=== PATIENT | female | born 1940 | race Two or more races ===

== ENCOUNTER 2019-01-26 17:34 | Inpatient (IN) | payer MEDICAID, MEDICARE, OTHER ==
[~2019-01-26] VITALS: Ht 160 cm; Wt 60.8 kg
[2019-01-26 18:45] LABS: Basophils # (auto) 0.1 uL; Basophils % (auto) 0.9 % (0.0-2.0); Eosinophils # (auto) 0.3 uL; Hematocrit 36.7 % (36.0-46.0); Hemoglobin 12.6 g/dL (12.2-16.2); Lymphocytes # (auto) 1.5 uL; Lymphocytes % (auto) 10.6 % (10.0-50.0); Mean Corpuscular Hgb Conc. 34.2 g/dL (32.0-36.0); Mean Corpuscular Volume 87.6 fL (80.0-100.0); Monocytes # (auto) 0.8 uL; Monocytes % (auto) 5.4 % (0.0-12.0); Neutrophils # (auto) 11.4 uL; Neutrophils % (auto) 81.1 % (37.0-80.0); Platelet Count (auto) 379 10^3/uL (140-450); Red Blood Cells 4.19 10^6/uL (4.0-5.20); Red Cell Distribution Width 13.4 % (11.8-14.3); White Blood Cell 14.1 10^3/uL (4.4-10.8)
[2019-01-26 18:58] LABS: Albumin 3.3 g/dL (3.4-5.0); Anion Gap 6 (5-15); Blood Urea Nitrogen 15 mg/dL (7-18); Calcium 9.6 mg/dL (8.5-10.1); Carbon Dioxide 28 mmol/L (21-32); Chloride 112 mmol/L (98-107); Glucose 129 mg/dL (74-106); Potassium 3.3 mmol/L (3.5-5.1); Sodium 146 mmol/L (136-145)
[2019-01-26 19:00] LABS: INR 1.06 (0.9-1.15); Partial Thromboplastin Time 25.1 sec (23.64-32.05)
[2019-01-26 19:03] LABS: Alanine Aminotransferase 28 U/L (13-56); Alkaline Phosphatase 80 U/L (45-117); Aspartate Aminotransferase 20 U/L (15-37); BUN/Creatinine Ratio 23.1; Bilirubin, Total 1.1 mg/dL (0.2-1.0); GFR African American 114 mL/min; GFR Non-African American 94 mL/min; Total Protein 7.9 g/dL (6.4-8.2)
[2019-01-26] MEDS ORDERED: ONDANSETRON HCL 4 MG/2 ML VIAL IV PRN (21:30)
[2019-01-26] MEDS ORDERED: cefTRIAXone 1GM/50ML D5W 50 ML IV ONE (21:30)
[2019-01-26] MEDS ORDERED: DOCUSATE SOD 100 MG CAP PO PRN (21:30)
[2019-01-26] MEDS ORDERED: FUROSEMIDE 40 MG/4 ML VIAL IV ONE (21:30)
[2019-01-26] MEDS: traZODone HCL 50 MG TAB PO SCH (22:00)
[2019-01-26] MEDS ORDERED: AZITHROMYCIN 500MG/ 250ML 250 ML IV ONE (22:30)
[2019-01-27 05:56] LABS: Basophils # (auto) 0.1 uL; Basophils % (auto) 0.7 % (0.0-2.0); Eosinophils # (auto) 0.2 uL; Eosinophils % (auto) 1.5 % (0.0-7.0); Hematocrit 36.1 % (36.0-46.0); Hemoglobin 12.3 g/dL (12.2-16.2); Lymphocytes # (auto) 2.3 uL; Lymphocytes % (auto) 15.6 % (10.0-50.0); Mean Corpuscular Hemoglobin 29.8 pg (28.0-32.0); Mean Corpuscular Volume 87.7 fL (80.0-100.0); Monocytes # (auto) 1.1 uL; Monocytes % (auto) 7.5 % (0.0-12.0); Neutrophils % (auto) 74.7 % (37.0-80.0); Platelet Count (auto) 331 10^3/uL (140-450); Red Blood Cells 4.12 10^6/uL (4.0-5.20); Red Cell Distribution Width 13.2 % (11.8-14.3); White Blood Cell 14.8 10^3/uL (4.4-10.8)
[2019-01-27 06:19] LABS: BUN/Creatinine Ratio 19.7; Potassium 3.2 mmol/L (3.5-5.1)
[2019-01-27] MEDS ORDERED: POTASSIUM CHL 20 Meq TABLET PO ONE ×2 (07:00→17:45)
[2019-01-27] MEDS ORDERED: cefTRIAXone 1GM/50ML D5W 50 ML IV SCH (09:00)
[2019-01-27] MEDS: PANTOPRAZOLE 40 MG TAB PO SCH (10:46)
[2019-01-27] MEDS: amLODIPine BESYLATE 5 MG TAB PO SCH (10:46)
[2019-01-27] MEDS ORDERED: IOHEXOL 300 MG/ML 100ML BOTTLE IJ ONE (12:28)
--- NOTE | 2019-01-27 17:00 | NUR ---
Telemetry admit from ER JANANAI admitted to Telemetry unit after SBAR received. Patient oriented to Hany Dozier, primary RN, unit, room, bed, and unit policies regarding patient care and visiting hours. Patient now on continuous telemetry monitoring, tele box # 6 and telemetry reading on arrival to unit is Sinus Rhythm. Patient placed on bedside oxygen @ 4L/min, weighed by bedscale and encouraged to call if they need something. All questions and concerns addressed, patient verbalized understanding.
[2019-01-27] MEDS ORDERED: LEVOFLOXACIN 500 MG TAB PO ONE (17:45)
[2019-01-27] MEDS ORDERED: POTASSIUM CHL 20MEQ/100ML 100 ML IV ONE (17:45)
[2019-01-27 18:34] VITALS: BP 127/63
--- NOTE | 2019-01-27 20:50 | NUR ---
PER MORNING SHIFT RN, POTASSIUM PO AND 20MEQ IV X1 AND LEVAQUIN WERE GIVEN, PULLED OUT FROM PSYCHIATRIC AT 1921.
[2019-01-27] MEDS ORDERED: AZITHROMYCIN 500MG/ 250ML 250 ML IV SCH (21:00)
[2019-01-27] MEDS: traZODone HCL 50 MG TAB PO SCH (21:44)
[2019-01-27 22:00] VITALS: BP 133/69
--- NOTE | 2019-01-27 22:09 | NUR ---
Respiratory note: PT SEEN FOR SCHEDULED MED NEB TX AT 2209. TX NOT INDICATED AT THIS TIME. PT IS DISPLAYING NO SIGNS OF DISTRESS. BREATH SOUNDS WERE CLEAR AND DIMINISHED BILATERALLY. HR 93 RR 16 POX 92% ON A 2L NASAL CANNULA.
[2019-01-28] VITALS (7 sets, daily range): BP systolic 95–143; BP diastolic 50–78
--- NOTE | 2019-01-28 06:07 | NUR ---
URINE SPECIMEN SENT TO LAB.
[2019-01-28 06:44] LABS: BUN/Creatinine Ratio 37.5; Calcium 9.2 mg/dL (8.5-10.1); Potassium 4.1 mmol/L (3.5-5.1)
[2019-01-28 07:09] LABS: Basophils # (auto) 0.1 uL; Basophils % (auto) 0.9 % (0.0-2.0); Eosinophils # (auto) 0.4 uL; Eosinophils % (auto) 3.2 % (0.0-7.0); Hematocrit 36.6 % (36.0-46.0); Hemoglobin 12.3 g/dL (12.2-16.2); Lymphocytes # (auto) 2.2 uL; Mean Corpuscular Hemoglobin 29.6 pg (28.0-32.0); Mean Corpuscular Hgb Conc. 33.7 g/dL (32.0-36.0); Neutrophils # (auto) 8.7 uL; Neutrophils % (auto) 69.9 % (37.0-80.0); Platelet Count (auto) 298 10^3/uL (140-450); Red Blood Cells 4.16 10^6/uL (4.0-5.20); Red Cell Distribution Width 13.3 % (11.8-14.3); White Blood Cell 12.4 10^3/uL (4.4-10.8)
--- NOTE | 2019-01-28 07:15 | NUR ---
Opening Shift Note Assumed care of patient, awake and alert. No S/S of distress/SOB or pain. Instructed on POC and to call for assist PRN, will continue to monitor for changes Q1hr and PRN. Bed locked in lowest position with two side rails up and call light in reach.
[2019-01-28] MEDS: PANTOPRAZOLE 40 MG TAB PO SCH (09:57)
[2019-01-28] MEDS: amLODIPine BESYLATE 5 MG TAB PO SCH (09:57)
[2019-01-28] MEDS: LEVOFLOXACIN 500 MG TAB PO SCH (09:57)
[2019-01-28 10:02] LABS: Urine Bacteria NONE SEEN /hpf (None Seen); Urine Blood Negative /uL (Negative); Urine Mucus FEW (None Seen); Urine Specific Gravity 1.042 (1.001-1.035); Urine WBC 6 /hpf (0 - 5)
--- NOTE | 2019-01-28 10:05 | NUR ---
Respiratory note: ROUTINE PRN TX ASSESSMENT DONE. HR 63, RR 16, POX 93% ON RA, BREATH SOUNDS ARE CLEAR. NO SOB OR DISTRESS NOTED. PT WAS NOTIFY TO HAVE RT PAGE FOR MN TX IF NEEDED.
--- NOTE | 2019-01-28 10:08 | NUR ---
SPOKE TO DR Ana JAMIL AND NOTIFIED HIM THAT RADIOLOGY CALLED AND SAID THE THE ADRENAL BIOPSY CANNOT BE PERFORMED "IT IS TO HIGH" . DR JAMIL AWARE AND SAID TO CONTACT DR GRACIA TO FIND OUT IF PATIENT IS CLEARED TO GO HOME AND FOLLOW UP OUT PATIENT OR IF THERE ANYTHING ELSE THAT NEEDS TO BE DONE.
--- NOTE | 2019-01-28 10:39 | NUR ---
SPOKE TO DR Soni GRACIA AT [facility] AND NOTIFIED HIM THAT Ana JAMIL WANTS TO [id number] IF THIS PATIENT IS CLEARED TO GO HOME OR IS THERE ANYTHING ELSE NEEDING TO BE ORDERS. PER DR GRACIA PATIENT CAN GO HOME AND FOLLOW UP WITH HIM IN [address] Ana JAMIL KNOW.
--- NOTE | 2019-01-28 12:59 | NUR ---
ORDERS FRO REGULAR DIET RECEIVED FROM DR Ana JAMIL
[2019-01-28] MEDS ORDERED: ENOXAPARIN SOD 40 MG/0.4 ML SYRINGE SC ONE (20:15)
[2019-01-28] MEDS ORDERED: IOHEXOL 350 MG/ML 100ML IJ ONE (20:17)
[2019-01-28] MEDS ORDERED: AML5T PO (20:17)
[2019-01-28] MEDS ORDERED: ENOXAPARIN SOD 60 MG/0.6 ML SYRINGE SC ONE (20:30)
[2019-01-28] MEDS: traZODone HCL 50 MG TAB PO SCH (21:09)
--- NOTE | 2019-01-28 21:15 | NUR ---
EKG DONE, ST WITH PACS. PATIENT CAME BACK FROM CT, PATIENT HAD EPISODES OF TACHYCARDIA TO 160'S WHILE IN CT, NON SUSTAINED, MD JAMIL MADE AWARE.
[2019-01-28] MEDS: SODIUM CHLORIDE 0.9% 1,000 ML IV SCH (21:45)
--- NOTE | 2019-01-28 21:50 | NUR ---
Respiratory note: ABG DONE ON ROOM AIR PER DR'S ORDER. LEFT A MESSAGE FOR DR. Nydia JAMIL. RN ALSO AWARE OF THE ABG RESULTS. PT PLACED BACK ON 2L NC, NO RESPIRATORY DISTRESS NOTED AT THIS TIME, PT FAMILY AT BEDSIDE. WILL CONTINUE TO MONITOR.
--- NOTE | 2019-01-28 22:25 | NUR ---
SPOKE WITH DR. COUGHLIN AND INFORMED HIM OF ABG RESULTS AND CTA RESULTS. ORDERED TO GIVE LOVENOX X1 ORDERED. HOLD MORNING DOSE OF LOVENOX AND MAY RESUME AFTER THORACENTESIS. KEEP O2SAT >94%, ORDERED TO PLACE IR CONSULT FOR THORACENTESIS IN THE MORNING, 01/29/19. IF POSSIBLE TO BE DONE EARLY IN THE MORNING POSSIBLE. PATIENT AND FAMILY INFORMED OF PLAN OF CARE.
--- NOTE | 2019-01-28 22:40 | NUR ---
DR JAMIL CALLED AND WANTED TO MOVE PATIENT TO STEP DOWN, MADE DIRECTOR OF DEVELOPMENT AND MARKETING AWARE. WAITING FOR AVAILABLE ROOM.
--- NOTE | 2019-01-28 23:00 | NUR ---
Respiratory note: PT ASSESSED FOR PRN MED NEB TX. HR 109, RR 18, SPO2 94% ON 8L OXYMIZER, BS DIMINISHED. PT STATED SHE DID NOT WANT A BREATHING TX. ADVISED PT TO CALL IF TX IS NEEDED.
--- NOTE | 2019-01-28 23:23 | NUR ---
VERBAL ORDER FROM DR. Nydia JAMIL TO GIVE NS IV TO RUN AT 75ML/HR X 2LITERS.
--- NOTE | 2019-01-28 23:24 | NUR ---
NOTIFIED RT REGARDING PATIENT REQUIRING MORE OXYGEN, CURRENTLY ON 5L/NC AND O2SAT IS STAYING AT 93%. PER MD JAMIL, TO KEEP O2SAT >94%. WILL PLACE PT ON OXYMIZER.
--- NOTE | 2019-01-28 23:34 | NUR ---
PAGED DR. JAMIL AND LEFT A MESSAGE THAT THERE IS NO AVAILABLE ROOM IN [facility] AT THIS TIME. WAITING FOR CALL BACK.
--- NOTE | 2019-01-29 00:13 | NUR ---
SPOKE WITH DR. JAMIL, IF THERE IS NO AVAILABLE [facility] BED TO MOVE PATIENT TO ICU. NOTIFIED RESOURCE ENGINEER, STILL WAITING FOR [facility] BED TO BE AVAILABLE SOMETIME TONIGHT. PATIENT'S DAUGHTER, RUPINDER NOTIFIED OF PATIENT MOVING TO [facility].
--- NOTE | 2019-01-29 01:21 | NUR ---
REPORT GIVEN TO WAYLON NUNEZ. PATIENT IS TRANSFERRING TO [facility] VIA BED WITH O2.
[2019-01-29 01:40] VITALS: BP 135/72
--- NOTE | 2019-01-29 01:40 | NUR ---
Received Pt from [facility] , assumed care of Pt, awake and alert, answered appropriately. Breathing on Oxymizer 8LPM, tachypneic and labored, lungs sound CTA except RML, RLL diminished, and LLL slightly diminished. 20G IV at right FA infusing NS at 75ml/hr, CDI site. Due to void. Bed in low position, call light within reach, all alarms are audible, fall and safety precaution in place. Instruct on POC and will continue to monitor q1 hr and prn.
--- NOTE | 2019-01-29 01:45 | NUR ---
PATIENT TRANSFERRED TO ROOM 263, NOTIFIED RUPINDER (PATIENT'S DAUGHTER) OF PATIENT ROOM NO.
[2019-01-29 04:00] VITALS: BP 131/66
--- NOTE | 2019-01-29 05:00 | NUR ---
Patient bathe/linen change/ Elimination Pt used bedpan and voided dark ton urine 120ml. Patient given partial bath and yeison care. Skin integrity assessed for any changes, no new changes. Linens changed. Patient repositioned for comfort. Tolerated fairly, SOB with exertion, unable to lie flat. Continue care.
[2019-01-29 05:57] LABS: Basophils # (auto) 0.1 uL; Basophils % (auto) 0.7 % (0.0-2.0); Eosinophils # (auto) 0.4 uL; Eosinophils % (auto) 2.9 % (0.0-7.0); Hematocrit 35.9 % (36.0-46.0); Hemoglobin 12.1 g/dL (12.2-16.2); Lymphocytes # (auto) 1.7 uL; Lymphocytes % (auto) 13.1 % (10.0-50.0); Mean Corpuscular Hemoglobin 29.9 pg (28.0-32.0); Mean Corpuscular Hgb Conc. 33.7 g/dL (32.0-36.0); Mean Corpuscular Volume 88.7 fL (80.0-100.0); Monocytes # (auto) 0.9 uL; Monocytes % (auto) 7.3 % (0.0-12.0); Neutrophils # (auto) 9.6 uL; Platelet Count (auto) 263 10^3/uL (140-450); Red Blood Cells 4.05 10^6/uL (4.0-5.20); Red Cell Distribution Width 13.2 % (11.8-14.3); White Blood Cell 12.6 10^3/uL (4.4-10.8)
[2019-01-29 06:04] LABS: Potassium 3.7 mmol/L (3.5-5.1)
[2019-01-29 06:22] LABS: BUN/Creatinine Ratio 20.3
[2019-01-29] MEDS: ALBUTEROL SULF 2.5 MG/0.5ML(0.5%) NEB SOLN NEB PRN (06:58)
--- NOTE | 2019-01-29 08:00 | NUR ---
Opening Shift Note Assumed care of patient, awake and alert. Patient Sinhala speaking. Patient on the monitor, VS WNL. Patient A&Ox4. Patient on Oxymizer at 8L saturation at 95%. IV 20G right forearm running NS at 75ml/hr. No S/S of distress/SOB or pain. Instructed on POC and to call for assist PRN. Bed locked and in the lowest position, side rails up x2, call light with in reach. Will continue to monitor.
[2019-01-29] MEDS: PANTOPRAZOLE 40 MG TAB PO SCH (09:53)
[2019-01-29] MEDS: amLODIPine BESYLATE 5 MG TAB PO SCH (09:54)
[2019-01-29] MEDS: LEVOFLOXACIN 500 MG TAB PO SCH (09:54)
[2019-01-29] MEDS: ENOXAPARIN SOD 60 MG/0.6 ML SYRINGE SC SCH ×2 (09:54→22:00)
[2019-01-29] MEDS ORDERED: ENOXAPARIN SOD 40 MG/0.4 ML SYRINGE SC SCH (10:00)
--- NOTE | 2019-01-29 10:00 | NUR ---
Medication dosages, usages, and side effects explained to patient and family. Patient and family verbalized understanding. Will continue to monitor.
[2019-01-29] MEDS: SODIUM CHLORIDE 0.9% 1,000 ML IV SCH ×2 (10:08→22:49)
--- NOTE | 2019-01-29 10:15 | NUR ---
Consents signed and in the chart for Right lung Thoracentesis. Radiologist and US tech at bedside for procedure. 1,400ml fluid out. No S/S of pain/SOB or distress noted during or after procedure. Dressing placed over procedure site right mid back. Dressing clean, dry, and intact, no signs of bleeding noted. Patient back in bed and resting at this time. Will continue to monitor.
--- NOTE | 2019-01-29 11:39 | NUR ---
Nutrition Assessment Notes please see attached link for complete assessment Est. Needs BW [id number] kcal (25-30 kcal/kgBW), 62-74 gms pro (1.0-1.2 gms/kgBW). Will continue to monitor pertinent labs and reassess nutrient need prn Addendum: 01/29/19 at [address] Amended: Links added.
[2019-01-29 12:00] VITALS: BP 112/59
--- NOTE | 2019-01-29 12:45 | NUR ---
Patient sitting up in bed eating lunch independently. Will continue to monitor.
--- NOTE | 2019-01-29 14:00 | NUR ---
Family at bedside. Patient resting. No S/S of pain/SOB or distress noted. Will continue to monitor.
--- NOTE | 2019-01-29 14:30 | NUR ---
Dr. Velasquez at bedside. Patient heart rate has increase between 120-130. Dr. Velasquez aware. Will page Dr. Cooper.
--- NOTE | 2019-01-29 15:30 | NUR ---
Dr. Cooper at bedside.
[2019-01-29 15:56] VITALS: BP 114/71
--- NOTE | 2019-01-29 16:00 | NUR ---
Patient had 1 small BM in bed aldana, form and brown in color. Will continue to monitor.
--- NOTE | 2019-01-29 16:07 | NUR ---
assessment Patient has no post discharge needs at this time. Addendum: 01/29/19 at 1608 by Mary Beth MAYFIELD Amended: Links added.
--- NOTE | 2019-01-29 17:00 | NUR ---
Patient resting. No S/S of pain/SOB or distress noted. Will continue to monitor.
--- NOTE | 2019-01-29 18:16 | NUR ---
Respiratory note: PT ASSESSED FOR PRN MED NEB TX. PT RESTING IN BED AT THIS TIME. NO RESPIRATORY DISTRESS NOTED. FAMILY AT BEDSIDE. HR 123, SPO2 95% ON 8L OXYMIZER, RR 26, BS CLEAR/DIMINISHED. PT AWARE TO HAVE RN PAGE RT IF MED NEB TX IS NEEDED, WILL CONTINUE TO MONITOR.
--- NOTE | 2019-01-29 18:30 | NUR ---
End of shift note: Patient sitting up in bed eating dinner. Patient Divehi speaking. Patient on the monitor, VS WNL. Patient A&Ox4. Patient on Oxymizer at 8L saturation at 96%. IV 20G right forearm running NS at 75ml/hr. No S/S of distress/SOB or pain. Bed locked and in the lowest position, side rails up x2, call light with in reach. Report to be given to date night sitter RN. Will continue to monitor.
--- NOTE | 2019-01-29 19:30 | NUR ---
Opening Shift Note Assumed care of patient, awake and alert. Breathing on Oxymizer 8 LPM, tachypneic, No S/S of distress. Denied pain. 20G IV at right FA infusing NS at 75 ml/hr, CDI site, due to d/s tomorrow. Due to void. Bed in low position, call light within reach, all alarms are audible, fall and safety precaution in place. Instructed on POC and to call for assist PRN, will continue to monitor for changes Q1hr and PRN.
[2019-01-29 20:00] VITALS: BP 118/72
[2019-01-29] MEDS: traZODone HCL 50 MG TAB PO SCH (21:47)
--- NOTE | 2019-01-29 23:50 | NUR ---
Condition update/ supplement V/S and condition stable, no fever, tachypneic, O2sat 95%. Asked to have some milk, provided with a carton of whole milk and prepared to NPO for the procedure tomorrow. Pt refused SCD, C/O unable to sleep due to SCD, explained reason/ benefit and risk, Pt aware but insisted to take off SCD. Continue care.
[2019-01-30] VITALS (9 sets, daily range): BP systolic 116–138; BP diastolic 62–80
--- NOTE | 2019-01-30 06:00 | NUR ---
Elimination/ Patient bathe/linen change Pt asked for a bed aldana and passed a moderate soft brown stool mixed with urine. Patient given complete bed bath. Skin integrity assessed for any changes, no new changes, thoracentesis wound CDI covered with Tegaderm. Linens changed. Patient repositioned for comfort. Breathing tolerated better than yesterday. Continue care.
[2019-01-30 06:35] LABS: Basophils # (auto) 0.1 uL; Basophils % (auto) 0.8 % (0.0-2.0); Eosinophils # (auto) 0.6 uL; Eosinophils % (auto) 5.2 % (0.0-7.0); Hematocrit 33.8 % (36.0-46.0); Hemoglobin 11.6 g/dL (12.2-16.2); Lymphocytes # (auto) 1.6 uL; Lymphocytes % (auto) 13.4 % (10.0-50.0); Mean Corpuscular Hemoglobin 30.4 pg (28.0-32.0); Mean Corpuscular Hgb Conc. 34.2 g/dL (32.0-36.0); Mean Corpuscular Volume 88.8 fL (80.0-100.0); Monocytes # (auto) 0.8 uL; Neutrophils # (auto) 8.7 uL; Neutrophils % (auto) 73.6 % (37.0-80.0); Platelet Count (auto) 240 10^3/uL (140-450); Red Blood Cells 3.81 10^6/uL (4.0-5.20); White Blood Cell 11.8 10^3/uL (4.4-10.8)
[2019-01-30 06:37] LABS: Calcium 8.5 mg/dL (8.5-10.1); Potassium 3.7 mmol/L (3.5-5.1)
[2019-01-30 06:40] LABS: BUN/Creatinine Ratio 21.2
[2019-01-30] MEDS: ALBUTEROL SULF 2.5 MG/0.5ML(0.5%) NEB SOLN NEB PRN (06:55)
--- NOTE | 2019-01-30 07:30 | NUR ---
RECEIVED PATIENT SITTING UP IN THE BED, A/O TIMES 4, AWAKEN BY NAME BEING CALLED , O2 AT 5L BY THE OXYMIZER, USES THE BEDPAN, NS INFUSING INTO THE RFA 20G AT 75ML/HR BY THE IV PUMP, NO COMPLAINTS OF PAIN
--- NOTE | 2019-01-30 08:30 | NUR ---
PATIENT IS AWARE THAT SHE IS NOT ABLE TO EAT ANYTHING BEFORE THE BIOPSY
--- NOTE | 2019-01-30 09:10 | NUR ---
DAUGHTER IN TO VISIT WITH THE PATIENT
[2019-01-30] MEDS: ENOXAPARIN SOD 60 MG/0.6 ML SYRINGE SC SCH ×2 (10:00→22:40)
[2019-01-30] MEDS ORDERED: LIDOCAINE 2%HCL (LOCAL ANESTH.) INJ 20ML MDV ONE ×2 (10:03→10:17)
[2019-01-30] MEDS: LEVOFLOXACIN 500 MG TAB PO SCH (10:10)
[2019-01-30] MEDS: PANTOPRAZOLE 40 MG TAB PO SCH (10:10)
--- NOTE | 2019-01-30 10:10 | NUR ---
EXPLAIN MEDIATIONS TO THE PATIENT REGARDING THE DOSAGE, USAGE AND THE SIDE EFFECTS,
[2019-01-30] MEDS: amLODIPine BESYLATE 5 MG TAB PO SCH (10:11)
[2019-01-30] MEDS ORDERED: GELATIN 1 SPONGE SIZE 50 TOP ONE (10:17)
--- NOTE | 2019-01-30 11:19 | NUR ---
TAKEN TO RADIOLOGY BY THE BED FOR LUNG BIOPSY
--- NOTE | 2019-01-30 11:40 | NUR ---
CT guided right lung needle biopsy done in Radiology per . See IV flow sheet for procedure vital signs. Fentanyl et Versed given per MD orders - see SEP. Procedure done with local anesthetic et mod sedation - patient amber well. No bleeding noted at site - covered with sterile gauze et Tegaderm.
[2019-01-30] MEDS: MIDAZOLAM HCL 1MG/1ML-2 ML VIAL IV ONE (11:45)
[2019-01-30] MEDS: fentaNYL CITRATE 100 MCG/2 ML VL IV ONE (11:45)
[2019-01-30] MEDS: SODIUM CHLORIDE 0.9% 1,000 ML IV SCH ×2 (12:00→22:55)
--- NOTE | 2019-01-30 12:10 | NUR ---
BACK FROM X-RAY AFTER HAVING LUNG BIOPSY
--- NOTE | 2019-01-30 13:15 | NUR ---
sitting up in bed eating her lunch
--- NOTE | 2019-01-30 13:52 | NUR ---
SON AT THE BEDSIDE
--- NOTE | 2019-01-30 14:33 | NUR ---
DR FELICIANO TO SEE THE PATIENT
--- NOTE | 2019-01-30 15:16 | NUR ---
FAMILY WITH THE PATIENT
--- NOTE | 2019-01-30 16:39 | NUR ---
GRANDSON IN TO SEE THE PATIENT , STATES SHE FEELS ANXIOUS, EXPRESS TO HER THAT I WOULD ASK THE MD FOR MEDICATION WHEN HE COMES
--- NOTE | 2019-01-30 17:03 | NUR ---
PATIENT COMPLAINING OF BEING ANXIOUS AND HR GOING UP TO THE 130'S AT TIMES, PAGED MD Anderson
--- NOTE | 2019-01-30 18:12 | NUR ---
no call from dr green regarding the patient still waiting for him to come, a/o times 4, daughter at the bedside, o2 at 3l by the Oxymizer, uses the bedpan but got a bsc for the patient, ns infusing into the rfa at 75ml/hr by the pump, no complaint of pain just anxious, o2 sat drops to the 88% when she starts moving in the bed, will continue to monitor and give report to the next next shift
--- NOTE | 2019-01-30 19:26 | NUR ---
PRN MED NEB ASSESSMENT. NO DISTRESS NOTED. PT DENIES SOB AT THIS TIME. HR 132 RR 22 POX 96% ON 4 L OXYMIZER. TX NOT GIVEN DUE TO HR. WILL CONT TO MONITOR.
--- NOTE | 2019-01-30 21:00 | NUR ---
SPOKE WITH PATIENT DAUGHTER RUPINDER OVER THE PHONE AND UPDATED ON PATIENT STATUS
[2019-01-30] MEDS: traZODone HCL 50 MG TAB PO SCH (22:40)
[2019-01-31] VITALS (7 sets, daily range): BP systolic 113–130; BP diastolic 59–75
--- NOTE | 2019-01-31 00:53 | NUR ---
DR.L METZ AT BEDSIDE UPDATED ON PATIENT STATUS NEW VERBAL ORDERS READ BACK AND VERIFIED AT THIS TIME
[2019-01-31] MEDS: ALPRAZolam 0.5 MG TAB PO PRN ×2 (01:01→09:58)
--- NOTE | 2019-01-31 04:50 | NUR ---
AM CARE PATIENT HAD EPISODE OF BOWEL INCONTINENCE WHILE GETTING UP TO BEDSIDE COMMODE. COMPLETE LINEN CHANGE DONE. COMPLETE BED BATH PROVIDED USING CHG WIPES. NEW GOWN PLACED ON PATIENT. REPOSITIONED IN BED FOR COMFORT.PATIENT HR UP TO 200'S DR. Ana METZ AWARE AND NO NEW ORDERS RECEIVED. PATIENT MADE AWARE ACTIVITY IS NOT TOLERATED AND MIGHT NEED BEDPAN. PATIENT VERBALIZED UNDERSTANDING.
--- NOTE | 2019-01-31 07:30 | NUR ---
RECEIVED PATIENT SEMI FOWLERS IN BED, A/O TIME 4 WHEN WAKEN BY THE NAME BEING CALLED, O2 AT 3L BY THE OXYMIZER, USING THE BEDPAN OR THE BSC, NS INFUSING INTO THE RFA 20G BY THE IV PUMP, DENIES PAIN
--- NOTE | 2019-01-31 08:30 | NUR ---
ATE BREAKFAST NO HELP NEEDED
--- NOTE | 2019-01-31 09:00 | NUR ---
SITTING UP IN BED, WITH EYES CLOSED
[2019-01-31] MEDS: LEVOFLOXACIN 500 MG TAB PO SCH (09:57)
[2019-01-31] MEDS: amLODIPine BESYLATE 5 MG TAB PO SCH (09:57)
[2019-01-31] MEDS: PANTOPRAZOLE 40 MG TAB PO SCH (09:57)
[2019-01-31] MEDS: ENOXAPARIN SOD 60 MG/0.6 ML SYRINGE SC SCH ×2 (09:58→23:54)
--- NOTE | 2019-01-31 10:00 | NUR ---
EXPLAIN MEDICATIONS TO THE PATIENT REGARDING THE DOSAGE, USAGE, AND THE SIDE EFFECTS, VERBALIZED THAT SHE UNDERSTOOD AND MEDS GIVEN ORDERED
--- NOTE | 2019-01-31 10:45 | NUR ---
GOTTEN UP TO THE BSC AND URINATED AND HAD A BM, PATIENT ABLE TO GET UP AND STAND ON HER OWN AND GET TO THE BSC
--- NOTE | 2019-01-31 11:33 | NUR ---
SITTING UP IN BED STATING SHE FEELS LESS ANXIOUS AFTER TAKING THE XANAX
--- NOTE | 2019-01-31 12:45 | NUR ---
sitting up in the bed eating her lunch
--- NOTE | 2019-01-31 14:01 | NUR ---
siting up in bed with eyes closed ask if she needed anything, and stated no she was doing okay
--- NOTE | 2019-01-31 14:32 | NUR ---
DR AVILES IN TO SEE THE PATENT AND STATES HE WILL WAIT FOR THE BIOPSY REPORT
--- NOTE | 2019-01-31 15:11 | NUR ---
Nutrition Follow-up Notes Wt.: 63.0 kg as of yesterday. Pt's on oxyimizer, asleep, no immediate family member at bedside when rounded this morning. Pt's no signs of distress noted earlier, currently on Regular diet with inadequate PO intake aeb 50% ave. consumed meals (x6) in last 2.5 days. Noted pt's for active Pulmonary, Radiology and Cardiology consults. Est. Needs BW [id number] kcal (25-30 kcal/kgBW), 62-74 gms pro (1.0-1.2 gms/kgBW). Will continue to monitor pertinent labs and reassess nutrient need prn Labs: No new labs today 01/30/19 Cl 110 H, Cr 0.52 L, Alb 3.3 L, Tot rupinder 1.1 L Skin: Ford scale 14, mod risk, pt's right upper posterior chest incision dry and intact per project geophysicist. GI: Pt had 2x BM this morning per project geophysicist. PES: Altered nutrition related lab values r/t acute/chronic medical condition aeb hyperglycemia, elev. renal labs, mod hypoalbuminemia Increased nutrient needs r/t current/chronic medical condition aeb Obesity r/t food intake more than body requirement aeb 206% IBW, BMI 42.9 kg/m2 and increased body adiposity Will continue to monitor PO intake, skin status, pertinent labs and weight trend. F/u in 3 to 5 days. Rec.: 1.) Consider Ensure Enlive 1 carton TID. 2.) Continue close supervision and feeding assistance prn during meals. 3.) If Albumin level continues trending down, consider Prostat 1 pkt BID. 4.) Refer pt to CDE/RD for further nutrition education and weight monitoring upon discharge. 5.) Continue current plan of care.
--- NOTE | 2019-01-31 15:30 | NUR ---
FAMILY HERE TO VISIT THE PATIENT, BUT STATES THEY ARE GOING TO WAIT IN THE FAMILY ROOM AND NOT WAIT HER UP
--- NOTE | 2019-01-31 16:15 | NUR ---
DR JAMIL IN TO SEE THE PATIENT AND ORDERED LABS TEST AND PARACENTESIS FOR THE PATIENT, CALLED THE PATHOLOGY DEPT AND PER THE LAB NO ONE IS THERE ON THE WEEKEND, MADE Ana AGUIRRE
--- NOTE | 2019-01-31 16:57 | NUR ---
DAUGHTER RUPINDER IN TO SEE THE PATIENT
[2019-01-31 17:04] LABS: Basophils # (auto) 0.1 uL; Basophils % (auto) 0.9 % (0.0-2.0); Eosinophils # (auto) 0.4 uL; Eosinophils % (auto) 2.9 % (0.0-7.0); Hematocrit 36.7 % (36.0-46.0); Hemoglobin 12.2 g/dL (12.2-16.2); Lymphocytes # (auto) 1.2 uL; Lymphocytes % (auto) 9.3 % (10.0-50.0); Mean Corpuscular Hemoglobin 29.3 pg (28.0-32.0); Mean Corpuscular Hgb Conc. 33.1 g/dL (32.0-36.0); Mean Corpuscular Volume 88.3 fL (80.0-100.0); Monocytes # (auto) 0.9 uL; Monocytes % (auto) 7.5 % (0.0-12.0); Neutrophils # (auto) 9.8 uL; Neutrophils % (auto) 79.4 % (37.0-80.0); Platelet Count (auto) 254 10^3/uL (140-450); Red Blood Cells 4.16 10^6/uL (4.0-5.20); Red Cell Distribution Width 13.3 % (11.8-14.3); White Blood Cell 12.4 10^3/uL (4.4-10.8)
[2019-01-31 17:20] LABS: Calcium 8.8 mg/dL (8.5-10.1); Potassium 3.4 mmol/L (3.5-5.1)
[2019-01-31 17:22] LABS: BUN/Creatinine Ratio 14.6
[2019-01-31] MEDS ORDERED: POTASSIUM EFFERVESENT TAB 25 MEQ PO ONE (17:30)
--- NOTE | 2019-01-31 17:45 | NUR ---
NO CHANGE IN CONDITION
--- NOTE | 2019-01-31 18:30 | NUR ---
SAT UP IN BED AND ATE HER DINNER, DAUGHTER AT THE BEDSIDE, SALINE LOCK RFA 20G INTACT FLUSHED AND PATENT, O2 AT 3L BY OXYMIZER, GETTING UP TO THE BSC WITH MINIMAL HEL, A/O TIMES 4, NO COMPLAINT OF PAIN , WILL CONTNINUE TO MONITOR AND GIVE REPORT TO THE NEXT SHIFT
--- NOTE | 2019-01-31 19:05 | NUR ---
PRN MED NEB ASSESSMENT. NO DISTRESS NOTED AT THIS TIME. PT DENIES SOB. POX 97% ON 5L OXYMIZER. HR 138 RR 22. TX NOT GIVEN DUE TO HR.
[2019-01-31] MEDS: traZODone HCL 50 MG TAB PO SCH (22:00)
[2019-02-01 06:13] LABS: Basophils # (auto) 0.1 uL; Basophils % (auto) 0.8 % (0.0-2.0); Eosinophils # (auto) 0.4 uL; Eosinophils % (auto) 3.8 % (0.0-7.0); Hematocrit 36.1 % (36.0-46.0); Hemoglobin 12.3 g/dL (12.2-16.2); Lymphocytes # (auto) 0.9 uL; Lymphocytes % (auto) 8.5 % (10.0-50.0); Mean Corpuscular Hemoglobin 30.3 pg (28.0-32.0); Mean Corpuscular Hgb Conc. 34.2 g/dL (32.0-36.0); Mean Corpuscular Volume 88.5 fL (80.0-100.0); Monocytes # (auto) 0.8 uL; Monocytes % (auto) 6.9 % (0.0-12.0); Neutrophils # (auto) 8.8 uL; Nucleated Red Blood Cells % 0.1 %; Platelet Count (auto) 248 10^3/uL (140-450); Red Blood Cells 4.08 10^6/uL (4.0-5.20); Red Cell Distribution Width 13.5 % (11.8-14.3)
[2019-02-01 06:30] LABS: BUN/Creatinine Ratio 11.4; Calcium 9.2 mg/dL (8.5-10.1); Potassium 3.4 mmol/L (3.5-5.1)
--- NOTE | 2019-02-01 06:41 | NUR ---
PRN [place] TX NOT INDICATED AT THIS TIME. PT SLEEPING COMFORTABLE. PT ON 3L/MIN VIA OXYMIZER CANNULA. NO SOB OR ANY OTHER ACUTE RESPIRATORY DISTRESS NOTICED. WILL CONTINUE TO MONITOR PT.
--- NOTE | 2019-02-01 07:00 | NUR ---
Opening Shift Note; Report received from WAYLON Robledo. Patient on oxymizer 3liters. HR has been in to 100's to 200's range. Patient progressively getting weaker. See PX assessment.
[2019-02-01 08:00] VITALS: BP 134/82
[2019-02-01] MEDS: ALPRAZolam 0.5 MG TAB PO PRN (09:31)
[2019-02-01] MEDS: amLODIPine BESYLATE 5 MG TAB PO SCH (09:31)
[2019-02-01] MEDS: LEVOFLOXACIN 500 MG TAB PO SCH (09:31)
[2019-02-01] MEDS: PANTOPRAZOLE 40 MG TAB PO SCH (09:31)
[2019-02-01] MEDS: ENOXAPARIN SOD 60 MG/0.6 ML SYRINGE SC SCH ×2 (09:32→22:20)
--- NOTE | 2019-02-01 10:49 | NUR ---
Dr. Dorado at bedside: Call Dr. Whitfield if ok to start patient on Bipap. Plan is to start patient on treatment when pathology results return.
--- NOTE | 2019-02-01 10:52 | NUR ---
Notified Dr. Whitfield: Bipap, ABG, Ultrasound and chest xray ordered for patient.
--- NOTE | 2019-02-01 11:28 | NUR ---
Patient on BIPAP -tolerating well HR decreased-still tachycardic.
[2019-02-01 11:30] VITALS: BP 122/70
--- NOTE | 2019-02-01 11:30 | NUR ---
Right Thoracentesis performed at bedside: Dr. Whitfield After obtaining consent-Sterile procedure used, 1150 of sanguinous fluid received. Patient placed back on nasal canula 2 liters. Fluid sent for cytology. Tolerated well.
[2019-02-01 11:46] VITALS: BP 122/70
[2019-02-01 16:00] VITALS: BP 107/56
--- NOTE | 2019-02-01 18:22 | NUR ---
Respiratory note: PRN MED NEB TX NOT INDICATED AT THIS TIME. PT ON 3 L/M NC, NO SOB OR ANY OTHER ACUTE RESPIRATORY DISTRESS NOTICED. WILL CONTINUE TO MONITOR PT.
[2019-02-01] MEDS: Ensure HIGH Protein Chocolate 8oz Bottle PO SCH (18:55)
--- NOTE | 2019-02-01 19:10 | NUR ---
Endorsed care to WAYLON Robledo.
[2019-02-01 20:00] VITALS: BP 120/59
[2019-02-01] MEDS: traZODone HCL 50 MG TAB PO SCH (22:00)
[2019-02-02] MEDS ORDERED: FUROSEMIDE 40 MG/4 ML VIAL ONE (01:37)
[2019-02-02 05:58] LABS: Basophils # (auto) 0.1 uL; Basophils % (auto) 0.9 % (0.0-2.0); Eosinophils # (auto) 0.5 uL; Eosinophils % (auto) 5.1 % (0.0-7.0); Hematocrit 36.9 % (36.0-46.0); Hemoglobin 12.4 g/dL (12.2-16.2); Lymphocytes # (auto) 1.2 uL; Lymphocytes % (auto) 12.9 % (10.0-50.0); Mean Corpuscular Hemoglobin 29.6 pg (28.0-32.0); Mean Corpuscular Hgb Conc. 33.5 g/dL (32.0-36.0); Mean Corpuscular Volume 88.1 fL (80.0-100.0); Monocytes # (auto) 0.7 uL; Neutrophils # (auto) 6.6 uL; Neutrophils % (auto) 73.1 % (37.0-80.0); Nucleated Red Blood Cells % 0.2 %; Platelet Count (auto) 255 10^3/uL (140-450); Red Blood Cells 4.19 10^6/uL (4.0-5.20); Red Cell Distribution Width 13.2 % (11.8-14.3)
[2019-02-02 06:10] LABS: INR 1.07 (0.9-1.15)
[2019-02-02 06:19] LABS: Calcium 8.5 mg/dL (8.5-10.1); Potassium 3.5 mmol/L (3.5-5.1)
--- NOTE | 2019-02-02 07:30 | NUR ---
RECEIVED PATIENT SITTING UP IN THE BED TOWARDS HER LEFT SIDE, O2 AT 3L BY N/C, A/O TIMES 4, HAS PLEURAL DRAIN TO THE RT LATERAL BACK, DRESSING REMOVED FROM THE BIOPSY SITE ON THE CHEST, SCD'S OFF, SALINE LOCK TO THE RT HAND 20G FLUSHED AND PATENT, STATES SHE IS USING THE BEDPAN NOW, SHE IS TO WEAK TO GET UP TO THE BSC
--- NOTE | 2019-02-02 07:30 | NUR ---
PATIENT DENIES PAIN AND STATES SHE FEELS BETTER
[2019-02-02 08:00] VITALS: BP 126/70
[2019-02-02] MEDS: Ensure HIGH Protein Chocolate 8oz Bottle PO SCH ×3 (08:00→18:07)
--- NOTE | 2019-02-02 08:05 | NUR ---
Pt remained stable throughout shift. No drainage above line drawn by AM shift in chest cath drainage bag. Report given, care endorsed.
--- NOTE | 2019-02-02 08:30 | NUR ---
patient sitting up in the bed, didn't want to be moved states she is okay reminded her that we don't want her to get bed sores , stated i know
--- NOTE | 2019-02-02 08:30 | NUR ---
placed scd's to rupinder legs, even though patient states she doesn't like want them, explain to her that she is not walking and they are prevent blood clots, verbalized that she understood
--- NOTE | 2019-02-02 08:50 | NUR ---
daughter naomie in to see the patient, and help with breakfast even though Patient can feed herself
--- NOTE | 2019-02-02 09:20 | NUR ---
grandsons into visit with the patient
--- NOTE | 2019-02-02 10:00 | NUR ---
explain medications to the patient regarding the dosage,usage, and the side effects, verbalized that she understood and meds given as ordered
[2019-02-02] MEDS: PANTOPRAZOLE 40 MG TAB PO SCH (10:01)
[2019-02-02] MEDS: LEVOFLOXACIN 500 MG TAB PO SCH (10:01)
[2019-02-02] MEDS: amLODIPine BESYLATE 5 MG TAB PO SCH (10:02)
[2019-02-02] MEDS: ENOXAPARIN SOD 60 MG/0.6 ML SYRINGE SC SCH ×2 (10:02→21:58)
--- NOTE | 2019-02-02 11:45 | NUR ---
dr baltazar and dr white in to see the patient, no new orders waiting for the biopsy results
[2019-02-02 12:00] VITALS: BP 135/64
--- NOTE | 2019-02-02 12:11 | NUR ---
sitting up in the bed talking to the family
--- NOTE | 2019-02-02 12:45 | NUR ---
DR BRONSON ORDERED A US GUIDED RT BREAST BIOPSY
--- NOTE | 2019-02-02 14:00 | NUR ---
SITTING UP IN THE BED WATCHING TV
[2019-02-02] MEDS ORDERED: METOPROLOL TARTRATE 25 MG TAB PO ONE (15:15)
--- NOTE | 2019-02-02 15:15 | NUR ---
TALKING TO HER DAUGHTER, ABOUT HAVING THE BREAST BIOPSY
[2019-02-02] MEDS ORDERED: LIDOCAINE 2%HCL (LOCAL ANESTH.) INJ 20ML MDV ONE (15:47)
[2019-02-02] MEDS: METOPROLOL TARTRATE 25 MG TAB PO SCH ×2 (15:56→21:58)
[2019-02-02 15:57] VITALS: BP 119/66
--- NOTE | 2019-02-02 16:13 | NUR ---
BREAST BIOPSY COMPLETED BY DR DUARTE AND PATIENT TOLERATED NO COMPLICATIONS
--- NOTE | 2019-02-02 16:30 | NUR ---
BIOPSY SPECIMEN SENT TO THE LAB
--- NOTE | 2019-02-02 17:30 | NUR ---
SITTING UP IN BED TALKING TO HER FAMILY STATES SHE IS DOING OKAY
--- NOTE | 2019-02-02 18:10 | NUR ---
SITTING IN UP IN THE BED TALKING WITH HER FAMILY, A/O TIMES 4, SALINE LOCK TO THE LFA 223G INTACT AND PATIENT, USES THE BEDPAN, SCD'S TO MAYA LEGS, O2 AT 3L BY OXYMIZER, DRESSING TO THE RT CHEST FROM BIOPSY, NO COMPLAINTS OF PAIN, PLEURAL DRAIN TO THE RT UPPER BACK WITH [id number] OF FLUID DRAINAGE TODAY, WILL CONTINUE TO MONITOR AND GIVE REPORT TO THE NEXT SHIFT
[2019-02-02 20:00] VITALS: BP 117/71
--- NOTE | 2019-02-02 20:00 | NUR ---
SHIFT OPENING NOTE RECEIVED PATIENT AWAKE, ALERT AND ORIENTED X4. NO SOB, DISTRESS OR PAIN NOTED. ON 3L NASAL CANULA. PLEURAL DRAIN NOTED TO HER RIGHT BACK. OUTPUT IS SEROSANGUINEOUS. PHYSICAL ASSESSMENT COMPLETED, SEE INTERVENTIONS. INSTRUCTED ON POC AND TO CALL FOR ASSIST NEEDED. BED IS IN THE LOWEST POSITION WITH SIDE RAILS UP X2, CALL LIGHT IS WITHIN REACH.
--- NOTE | 2019-02-02 21:30 | NUR ---
SPOKE WITH DAUGHTER JOSY ON THE PHONE UPDATED HER ON PATIENTS STATUS AND POC. VERBALIZED UNDERSTANDING.
[2019-02-02] MEDS: traZODone HCL 50 MG TAB PO SCH (21:58)
[2019-02-03] VITALS (7 sets, daily range): BP systolic 102–126; BP diastolic 56–71
--- NOTE | 2019-02-03 00:15 | NUR ---
ROUNDS PATIENT QUIETLY LAYING IN BED SLEEPING. NO SOB, DISTRESS OR PAIN NOTED. VS STABLE. WILL CONTINUE TO CLOSELY MONITOR.
--- NOTE | 2019-02-03 04:55 | NUR ---
MORNING HYGIENE CARE FULL BED BATH PERFORMED WITH CHG WIPES. PARTIAL LINEN CHANGE. GOWN CHANGED. PATIENT REPOSITIONED FOR COMFORT. SKIN REASSESSED AT THIS TIME. NO CHANGES. TOLERATED IT WELL.
--- NOTE | 2019-02-03 06:00 | NUR ---
Respiratory note: ROUTINE PRN TX ASSESSMENT. HR 106, RR 20, POX 96% ON 3 L/M NC, BREATH SOUNDS ARE CLEAR. NO SOB OR DISTRESS NOTED. PT WAS NOTIFY TO HAVE RT PAGE FOR [place] TX.
[2019-02-03 06:20] LABS: Basophils # (auto) 0.1 uL; Basophils % (auto) 0.6 % (0.0-2.0); Eosinophils # (auto) 0.3 uL; Eosinophils % (auto) 3.6 % (0.0-7.0); Hematocrit 36.8 % (36.0-46.0); Hemoglobin 12.5 g/dL (12.2-16.2); Lymphocytes # (auto) 1.3 uL; Lymphocytes % (auto) 14.4 % (10.0-50.0); Mean Corpuscular Hemoglobin 29.9 pg (28.0-32.0); Mean Corpuscular Hgb Conc. 33.9 g/dL (32.0-36.0); Mean Corpuscular Volume 88.1 fL (80.0-100.0); Monocytes # (auto) 0.7 uL; Monocytes % (auto) 7.5 % (0.0-12.0); Neutrophils # (auto) 6.4 uL; Neutrophils % (auto) 73.9 % (37.0-80.0); Nucleated Red Blood Cells % 0.1 %; Platelet Count (auto) 283 10^3/uL (140-450); Red Blood Cells 4.17 10^6/uL (4.0-5.20); Red Cell Distribution Width 13.1 % (11.8-14.3); White Blood Cell 8.7 10^3/uL (4.4-10.8)
[2019-02-03 06:43] LABS: Calcium 8.7 mg/dL (8.5-10.1); Potassium 3.5 mmol/L (3.5-5.1)
[2019-02-03 06:45] LABS: BUN/Creatinine Ratio 21.7
--- NOTE | 2019-02-03 06:55 | NUR ---
SPOKE WITH DAUGHTER RUPINDER VIA TELEPHONE UPDATED HER ON PATIENTS STATUS AND POC. VERBALIZED UNDERSTANDING.
--- NOTE | 2019-02-03 06:58 | NUR ---
END OF SHIFT PATIENT QUIETLY LAYING IN BED SLEEPING. NO SOB, DISTRESS OR PAIN NOTED. WILL GIVE REPORT AND ENDORSE CARE TO THE DAY SHIFT RN.
--- NOTE | 2019-02-03 07:45 | NUR ---
Opening Shift Note Assumed care of patient, awake and alert. No S/S of distress/SOB or pain. Instructed on POC and to call for assist PRN, will continue to monitor for changes Q1hr and PRN. Right Thoracentesis with draining tube intact, no complaining of pain or redness noted. Patient sitting up on the bed, mouth care supplies provided.
[2019-02-03] MEDS: METOPROLOL TARTRATE 25 MG TAB PO SCH ×2 (09:13→22:20)
[2019-02-03] MEDS: PANTOPRAZOLE 40 MG TAB PO SCH (09:14)
[2019-02-03] MEDS: ENOXAPARIN SOD 60 MG/0.6 ML SYRINGE SC SCH ×2 (09:14→22:19)
[2019-02-03] MEDS: LEVOFLOXACIN 500 MG TAB PO SCH (09:14)
[2019-02-03] MEDS: Ensure HIGH Protein Chocolate 8oz Bottle PO SCH ×3 (09:15→18:29)
[2019-02-03] MEDS: ALPRAZolam 0.5 MG TAB PO PRN (09:17)
--- NOTE | 2019-02-03 09:30 | NUR ---
Patient had around 50 % of breakfast tray, had around 50 ml of Glucerna, no N/V noted, patient refused to have medication for constipation at this time but requested medication for Anxiety. Her family at the bedside. Medication given, will continue to monitor and care.
--- NOTE | 2019-02-03 10:30 | NUR ---
Patient able to rest and sleep after Xanax given for anxiety, HR 105-140/min with sinus tachycardia and rare PAC, BP 97/67 mmHg, will continue to monitor .
--- NOTE | 2019-02-03 11:50 | NUR ---
Dr. Alfaro at the bedside.
--- NOTE | 2019-02-03 12:10 | NUR ---
Patient had small bowel movement. Perineal care provided, applied Z guard cream around yeison rectal are.
--- NOTE | 2019-02-03 12:15 | NUR ---
Left the message to Dr. Alfaro regarding Cytology result.
--- NOTE | 2019-02-03 12:15 | NUR ---
Nutrition Follow-up Notes Wt.: 65.4 kg as of yesterday. Pt's on oxygen via nasal cannula, asleep, no immediate family member at bedside during rounds this morning. Pt's s/p Thoracentesis (02/01/19), no signs of distress noted earlier, currently on Regular diet with Ensure High Protein 1 carton TID, has inadequate PO intake aeb 50% ave. consumed meals (x6) in last 2.5 days. Noted pt's for active Pulmonary and Radiologist consults. Est. Needs BW [id number] kcal (25-30 kcal/kgBW), 62-74 gms pro (1.0-1.2 gms/kgBW). Will continue to monitor pertinent labs and reassess nutrient need prn Labs: Pertinent labs today wnl except for Cr 0.46 L; Ca 60.5 H, Alb 3.3 L, Tot rupinder 1.1 L Skin: Ford scale 13, mod risk, pt's right upper posterior chest incision dry and intact per bistro attendant. GI: Pt had 1x BM 02/01/19 per bistro attendant. PES: Altered nutrition related lab values r/t acute/chronic medical condition aeb hyperchloremia, low Cr, hyperbilirubinemia, mild hypoalbuminemia Increased nutrient needs r/t current/chronic medical condition aeb Right breast mass,Right large pleural effusion, mild hypoalbuminemia on ONS with <75% consumed meals Will continue to monitor PO intake, skin status, pertinent labs and weight trend. F/u in 3 to 5 days. Rec.: 1.) Continue close supervision and feeding assistance prn during meals. 2.) If Albumin level continues trending down, consider Prostat 1 pkt BID. 3.) Refer pt to RD for further nutrition education and weight monitoring upon discharge. 4.) Continue current plan of care.
--- NOTE | 2019-02-03 12:28 | NUR ---
Talked to Dr. Alfaro on the phone, made aware about the cytology result from right pleural effusion (on 01/30) that no malignant cell seen, no new order at this time. Called and left the message to Dr. Thomason to call back regarding Cytology result.
--- NOTE | 2019-02-03 12:45 | NUR ---
Lunch tray provided, her family at the bedside.
[2019-02-03] MEDS: ACETAMINOPHEN 500 MG TAB PO PRN (14:10)
--- NOTE | 2019-02-03 14:10 | NUR ---
Patient had Lunch around 50% of the tray.
--- NOTE | 2019-02-03 14:27 | NUR ---
Tylenol given for pain management, patient stated that she has pain only when she is moving, turning. No pain when resting. Will continue to monitor and care.
--- NOTE | 2019-02-03 16:00 | NUR ---
Thoracentesis draining tube checked at this time as well, no redness surrounding area, milking at this time, no content noted.
--- NOTE | 2019-02-03 18:20 | NUR ---
Patient sitting on the bed, talking to her daughters, dinner tray provided with Chopped meat as requested to hydro mechanic, patient and her families made aware. Will continue to monitor her diet and intake.
--- NOTE | 2019-02-03 19:15 | NUR ---
OPENING SHIFT RECEIVED REPORT FROM DAY SHIFT RN. ASSUMED CARE OF PATIENT. PATIENT IN BED WATCHING TV WITH NO SIGNS OR SYMPTOMS OF SOB, PAIN OR DISTRESS. CURRENTLY ON 3L 02 NASAL CANNULA, 02 SAT - 967%. PLEURAL DRAIN NOTED ON RIGHT BACK. LEFT FOREARM IV - CLEAN/DRY/INTACT. UPDATED PATIENT ON PLAN OF CARE. BED IN LOWEST POSITION, SIDE RAILS UP X2, CALL LIGHT WITHIN REACH. WILL CONTINUE TO MONITOR.
--- NOTE | 2019-02-03 21:30 | NUR ---
Respiratory note: PT ASSESSED FOR PRN MED NEB TX. HR 100, RR 18, SPO2 92% ON 11L OXYMIZER. NO SIGNS OF ANY RESPIRATORY DISTRESS NOTED. ADVISED PT TO CALL IF TX IS NEEDED. Addendum: 02/04/19 at 0138 by TIFFANY KATZ RT PT ON 3L NC, SPO2 97%.
[2019-02-03] MEDS: traZODone HCL 50 MG TAB PO SCH (22:20)
[2019-02-04] VITALS: BP 116/60
[2019-02-04 04:00] VITALS: BP 113/55
--- NOTE | 2019-02-04 04:50 | NUR ---
MORNING CARE PATIENT REFUSED MORNING CARE AND LINEN CHANGE AT THIS TIME. STATES, "I NEED A WOMAN TO HELP ME. IM WANT TO WAIT TILL THE MORNING." LEFT CLEAN LINEN AT BEDSIDE. WILL CONTINUE TO MONITOR.
[2019-02-04 06:21] LABS: Basophils # (auto) 0.1 uL; Basophils % (auto) 0.9 % (0.0-2.0); Eosinophils # (auto) 0.4 uL; Hematocrit 34.9 % (36.0-46.0); Hemoglobin 11.5 g/dL (12.2-16.2); Lymphocytes # (auto) 1.1 uL; Lymphocytes % (auto) 13.7 % (10.0-50.0); Mean Corpuscular Hemoglobin 29.2 pg (28.0-32.0); Mean Corpuscular Hgb Conc. 33.1 g/dL (32.0-36.0); Mean Corpuscular Volume 88.3 fL (80.0-100.0); Monocytes # (auto) 0.7 uL; Monocytes % (auto) 8.3 % (0.0-12.0); Neutrophils # (auto) 5.9 uL; Neutrophils % (auto) 72.1 % (37.0-80.0); Nucleated Red Blood Cells % 0.1 %; Platelet Count (auto) 256 10^3/uL (140-450); Red Blood Cells 3.95 10^6/uL (4.0-5.20); Red Cell Distribution Width 12.8 % (11.8-14.3); White Blood Cell 8.2 10^3/uL (4.4-10.8)
[2019-02-04 06:27] LABS: Potassium 3.3 mmol/L (3.5-5.1)
[2019-02-04 06:34] LABS: BUN/Creatinine Ratio 26.2; Calcium 8.6 mg/dL (8.5-10.1); Magnesium 2.1 mg/dL (1.6-2.6)
--- NOTE | 2019-02-04 06:41 | NUR ---
END OF SHIFT PATIENT IN BED SLEEPING WITH NO SIGNS OR [id number] OF SOB, PAIN OR DISTRESS. CURRENTLY ON 3L 02 NASAL CANNULA, 02 SAT - 95%. LEFT FOREARM IV - CLEAN/DRY/INTACT. BED IN LOWEST POSITION, SIDE RAILS UP X2, CALL LIGHT WITHIN REACH. WILL ENDORSE CARE TO DAY SHIFT RN. Addendum: 02/04/19 at 0643 by PABLO PINA RN RN PLEURAL DRAIN NOTED ON RIGHT BACK - PATENT/INTACT. NO CHANGE IN DRAINING OUTPUT.
--- NOTE | 2019-02-04 06:51 | NUR ---
SPOKE WITH DAUGHTER RUPINDER AND UPDATED HER ON PLAN OF CARE AND STATUS OF PATIENT.
--- NOTE | 2019-02-04 07:15 | NUR ---
Opening Shift Note Assumed care of patient, awake and alert. No S/S of distress/SOB or pain. Instructed on POC and to call for assist PRN, will continue to monitor for changes Q1hr and PRN. Bedpan provided.
--- NOTE | 2019-02-04 07:30 | NUR ---
Perineal care, partial Akbar changed, applied Z guard cream around yeison rectal area. Patient sitting on the bed, provided mouth care supplies. Patient stated that she still having when only moving around. Will give medication for pain management, will continue to monitor and care.
--- NOTE | 2019-02-04 07:37 | NUR ---
Respiratory note: PT ASSESSED FOR PRN MED NEB TX. TX IS NOT INDICATED AT THIS TIME. POX 94% ON 3L NC, HR 89, RR 26. B/S ARE CLEAR THROUGHOUT AND DIMINISHED IN THE RLL. RN AT BEDSIDE AND AWARE TO PAGE RT IF PT HAS ANY S/S OF SOB.
[2019-02-04] MEDS: ACETAMINOPHEN 500 MG TAB PO PRN (07:47)
[2019-02-04] MEDS: Ensure HIGH Protein Chocolate 8oz Bottle PO SCH ×3 (07:48→17:51)
[2019-02-04 08:00] VITALS: BP 127/61
--- NOTE | 2019-02-04 08:25 | NUR ---
Dr. Moreno in the unit, made aware the cytology result. Still waiting for Pathology report, called and checked again this morning, the report still incomplete at this time, provided Fax number and will call to check again in the afternoon.
--- NOTE | 2019-02-04 08:30 | NUR ---
Breakfast tray provided, her family at bedside.
[2019-02-04] MEDS: PANTOPRAZOLE 40 MG TAB PO SCH (09:39)
[2019-02-04] MEDS: LEVOFLOXACIN 500 MG TAB PO SCH (09:39)
[2019-02-04] MEDS: METOPROLOL TARTRATE 25 MG TAB PO SCH ×2 (09:41→21:49)
[2019-02-04] MEDS: ENOXAPARIN SOD 60 MG/0.6 ML SYRINGE SC SCH ×2 (09:41→21:49)
--- NOTE | 2019-02-04 10:31 | NUR ---
Received a call from Dr. Thomason at this time, still waiting a report from The tissue, made aware about the report from pleural effusion that no malignant cell seen. Received an order for CXR this morning.
--- NOTE | 2019-02-04 10:42 | NUR ---
Perineal care provided, patient had small bowel movement. Applied Z guard cream around yeison rectal area.
[2019-02-04 11:50] VITALS: BP 116/62
--- NOTE | 2019-02-04 11:52 | NUR ---
Dr. Alfaro at the bedside, plan of care discussed with patient and her daughters also at the bedside, they verbalized understanding, will continue to monitor in [place]. MD made aware about the Lab result, and will check with the pathology report again in the afternoon.
--- NOTE | 2019-02-04 13:10 | NUR ---
Patient had around 80% of Lunch tray, her daughters at the bedside.
--- NOTE | 2019-02-04 15:00 | NUR ---
Patient resting on the bed, talking to her granddaughter. HR 85-100 /min, no complaining of SOB or pain, will continue to monitor and care.
[2019-02-04] MEDS ORDERED: POTASSIUM EFFERVESENT TAB 25 MEQ GT ONE (15:30)
[2019-02-04 15:42] VITALS: BP 124/65
--- NOTE | 2019-02-04 16:03 | NUR ---
Her daughter (Greer) visits patient at this time, at the bedside.
--- NOTE | 2019-02-04 16:10 | NUR ---
Called and left the message to the Lab for getting the update about Pathology report. Waiting a call back.
--- NOTE | 2019-02-04 17:10 | NUR ---
Patient had small bowel movement, perineal care provided, applied z guard cream around yeison rectal area.
--- NOTE | 2019-02-04 18:25 | NUR ---
Respiratory note: PT ASSESSED FOR PRN MED NEB TX. PT DENIES ANY SOB AT THIS TIME. B/S ARE DIM. SPO2 98% ON 3L, HR 112, RR 20. PT INFORMED TO HAVE RT PAGED IF NEEDED.
--- NOTE | 2019-02-04 18:44 | NUR ---
Patient had around 50% of Dinner tray, sitting on the bed and watching TV, her daughter already left. No complaining of SOB noted.
[2019-02-04 19:44] VITALS: BP 137/68
[2019-02-04] MEDS: traZODone HCL 50 MG TAB PO SCH (21:49)
[2019-02-04] MEDS: ALPRAZolam 0.5 MG TAB PO PRN (23:35)
[2019-02-05] VITALS (7 sets, daily range): BP systolic 106–120; BP diastolic 50–82
--- NOTE | 2019-02-05 04:54 | NUR ---
Pt has remained stable this shift. 2 BM's noted. Though she had Trazodone for sleep, pt stated she felt anxious, Xanax given per orders. With resting and meds HR has been in the 75-82 range. No S/S of distress. Has not asked for pain medication. Chest drainage bag to gravity. Will continue to monitor.
[2019-02-05 05:18] LABS: Basophils # (auto) 0.1 uL; Eosinophils # (auto) 0.4 uL; Hematocrit 32.5 % (36.0-46.0); Hemoglobin 11.2 g/dL (12.2-16.2); Lymphocytes # (auto) 1.2 uL; Lymphocytes % (auto) 16.9 % (10.0-50.0); Mean Corpuscular Hemoglobin 30.1 pg (28.0-32.0); Mean Corpuscular Hgb Conc. 34.3 g/dL (32.0-36.0); Mean Corpuscular Volume 87.8 fL (80.0-100.0); Monocytes # (auto) 0.6 uL; Monocytes % (auto) 8.6 % (0.0-12.0); Neutrophils % (auto) 68.5 % (37.0-80.0); Platelet Count (auto) 257 10^3/uL (140-450); Red Cell Distribution Width 13.4 % (11.8-14.3); White Blood Cell 7.3 10^3/uL (4.4-10.8)
[2019-02-05 05:22] LABS: INR 1.03 (0.9-1.15); Partial Thromboplastin Time 32.2 sec (23.64-32.05)
[2019-02-05 05:30] LABS: BUN/Creatinine Ratio 25.6; Calcium 8.7 mg/dL (8.5-10.1)
--- NOTE | 2019-02-05 07:45 | NUR ---
Opening Shift Note Assumed care of patient, awake and alert. No S/S of pain. SOB on exertion, patient on 3 LPM nasal cannula, saturation 95%. RT chest drainage not draining since 02/02, MD aware per report. Bed locked on lowest position, side rails up x2, bed alarms on at all times, call resendez within reach, instructed on POC and to call for assist PRN, will continue to monitor for changes Q1hr and PRN.
[2019-02-05] MEDS: Ensure HIGH Protein Chocolate 8oz Bottle PO SCH ×3 (08:24→18:27)
[2019-02-05] MEDS: METOPROLOL TARTRATE 25 MG TAB PO SCH ×2 (09:32→21:12)
[2019-02-05] MEDS: ENOXAPARIN SOD 60 MG/0.6 ML SYRINGE SC SCH ×2 (09:32→21:13)
[2019-02-05] MEDS: PANTOPRAZOLE 40 MG TAB PO SCH (09:32)
[2019-02-05] MEDS: LEVOFLOXACIN 500 MG TAB PO SCH (09:32)
--- NOTE | 2019-02-05 09:37 | NUR ---
Respiratory note: ASSESSED PT FOR PRN MEDNEB TX. HR 117, RR 19, POX 94% ON 3L NC. BREATH SOUNDS CLEAR/DIMINISHED THROUGHOUT. PT SAYS HER BREATHING IS FEELING FINE. NO S/S OF RESPIRATORY DISTRESS. MEDNEB TX NOT INDICATED AT THIS TIME. WROTE RT NAME AND PAGER NUMBER ON WHITEBOARD, ADVISED PT TO CALL FOR RT IF NEEDED. PT'S FAMILY AT BEDSIDE ALSO AWARE.
--- NOTE | 2019-02-05 10:40 | NUR ---
Patient able to do IS less than 500ml. Patient re-instructed and motivated on use and benefits of doing IS. Patient verbalized understanding and states "Ok. I will do it."
--- NOTE | 2019-02-05 11:49 | NUR ---
Dr Leon at bedside, updated on patient's status, informed patient's pleural catheter has not been draining and chest xray 02/04 showed increasing RT pleural effusion. MD verbalized understanding and states "Inform Dr Parry." Patient seen and examined. Will inform Dr Parry. Received verbal order to start patient on PT - ROM. Orders read back and verified. Will carry out.
--- NOTE | 2019-02-05 12:46 | NUR ---
Nora PETER for [facility] stated she has faxed the ss order to Isaiah [facility]HER fax # [phone] and ph [phone]. Nora to call once she gets agency
--- NOTE | 2019-02-05 12:58 | NUR ---
Assisted patient to bedside commode, fall precautions in placed, patient tolerated well.
--- NOTE | 2019-02-05 13:00 | NUR ---
Paged Dr Moreno regarding update/clarification on patient's pathology report, awaiting call back.
--- NOTE | 2019-02-05 13:08 | NUR ---
Dr Velasquez at bedside, updated on patient's status. No new orders at this time.
--- NOTE | 2019-02-05 13:15 | NUR ---
Patient assisted by Shaunna QUEEN from bedside commode to bedside chair. Fall precautions in placed. Patient tolerated well.
--- NOTE | 2019-02-05 14:20 | NUR ---
Paged Dr Parry regarding patient's pleural drain and chest xray report 02/04. Awaiting call back.
--- NOTE | 2019-02-05 14:53 | NUR ---
Re-paged Dr Moreno regarding update/clarification on patient's pathology report. Awaiting call back.
--- NOTE | 2019-02-05 14:58 | NUR ---
Re-paged Dr Marques, awaiting call back.
--- NOTE | 2019-02-05 15:22 | NUR ---
Received call from Dr Marques, updated on patient's status. Informed pleural drain has not been draining since it was placed 02/01 and chest xray report 02/02 showed increased RT side pleural effusion. MD to see patient in the morning. Meena Prather RN informed of situation.
--- NOTE | 2019-02-05 16:08 | NUR ---
Pawel PT at bedside, patient sitting on bedside chair, ROM done. Patient tolerated well.
--- NOTE | 2019-02-05 16:23 | NUR ---
Per consult for home health safety evaluation, and [facility]. contacted and faxed medical records to [employer] [facility] Ph: ) Fax: ) Joseph Melendez from [facility] Pt has been accepted to [facility] to start within 48 hrs upon d/c day and [facility] transitional care management was also approved. Addendum: 02/05/19 at 1627 by BRENDAN LAGUERRE Amended: Links added.
--- NOTE | 2019-02-05 19:15 | NUR ---
PT ASSESSED FOR PRN TX. PT DENIES SOB. PRN TX NOT INDICATED AT THIS TIME. PT AWARE TO PAGE IF TX NEEDED OR BECOMES SOB. HR 129 RR 22 POX 97% ON 3 LPM VIA NC. B/S CLEAR/ DECREASED
--- NOTE | 2019-02-05 20:00 | NUR ---
SHIFT OPENING NOTE RECEIVED PATIENT AWAKE, ALERT AND ORIENTED X4. NO SOB, DISTRESS OR PAIN NOTED. PATIENT SITTING ON CHAIR. ON 3L N/C POX 94%. ASSISTED BACK INTO BED SAFELY. RIGHT BACK PLEURAL DRAIN SHOWS 400 OUTPUT SO FAR. PHYSICAL ASSESSMENT COMPLETED, SEE INTERVENTIONS. INSTRUCTED ON POC AND TO CALL FOR ASSIST NEEDED. BED IS IN THE LOWEST POSITION WITH SIDE RAILS UP X2, CALL LIGHT IS WITHIN REACH.
[2019-02-05] MEDS: traZODone HCL 50 MG TAB PO SCH (21:12)
[2019-02-05] MEDS: ALPRAZolam 0.5 MG TAB PO PRN (21:13)
[2019-02-06] VITALS: BP 115/61
--- NOTE | 2019-02-06 01:00 | NUR ---
ROUNDS PATIENT QUIETLY LAYING IN BED SLEEPING. NO SOB, DISTRESS OR PAIN NOTED. WILL CONTINUE TO CLOSELY MONITOR.
[2019-02-06 04:00] VITALS: BP 114/61
[2019-02-06 05:39] LABS: Basophils # (auto) 0.1 uL; Basophils % (auto) 1.1 % (0.0-2.0); Eosinophils # (auto) 0.4 uL; Eosinophils % (auto) 5.1 % (0.0-7.0); Hematocrit 34.4 % (36.0-46.0); Hemoglobin 11.6 g/dL (12.2-16.2); Lymphocytes # (auto) 1.3 uL; Lymphocytes % (auto) 18.4 % (10.0-50.0); Mean Corpuscular Hemoglobin 29.6 pg (28.0-32.0); Mean Corpuscular Hgb Conc. 33.6 g/dL (32.0-36.0); Monocytes # (auto) 0.6 uL; Neutrophils # (auto) 4.7 uL; Neutrophils % (auto) 67.4 % (37.0-80.0); Platelet Count (auto) 261 10^3/uL (140-450); Red Cell Distribution Width 13.2 % (11.8-14.3); White Blood Cell 6.9 10^3/uL (4.4-10.8)
[2019-02-06 05:52] LABS: INR 1.02 (0.9-1.15); Partial Thromboplastin Time 31.7 sec (23.64-32.05)
[2019-02-06 06:02] LABS: Calcium 9.1 mg/dL (8.5-10.1); Potassium 3.9 mmol/L (3.5-5.1)
[2019-02-06 06:05] LABS: BUN/Creatinine Ratio 26.2; Magnesium 2.2 mg/dL (1.6-2.6)
--- NOTE | 2019-02-06 06:05 | NUR ---
MORNING HYGIENE CARE NOT YET DONE PATIENT REFUSED AT THIS TIME. SHE WANTED TO SLEEP SOME MORE. INFORMED HER THAT SUPPLIES ARE LEFT AT BEDSIDE FOR HER TO CLEAN UP LATER. LINENS AND PAD ARE CURRENTLY CLEAN.
--- NOTE | 2019-02-06 06:45 | NUR ---
END OF SHIFT PATIENT QUIETLY LAYING IN BED SLEEPING. NO SOB, DISTRESS OR PAIN NOTED. WILL GIVE REPORT AND ENDORSE ARE TO THE DAY SHIFT RN.
[2019-02-06] MEDS: Ensure HIGH Protein Chocolate 8oz Bottle PO SCH ×3 (08:00→18:00)
--- NOTE | 2019-02-06 08:00 | NUR ---
Opening Shift Note Assumed care of patient, awake and alert. Patient A&Ox4. Patient on the monitor. IV left forearm 22G saline locked, patent, clean, dry, and intact. Patient on 3L NC saturation at 95%. Right upper back chest tube to gravity, dressing clean, dry, and intact. 475ml of serosanguineous fluid noted. S/S of distress/SOB or pain. Instructed on POC and to call for assist PRN. Bed locked and in the lowest position, side rails upx2, call light with in reach. Will continue to monitor.
--- NOTE | 2019-02-06 08:15 | NUR ---
Patient sitting up in bed eating breakfast independently. Will continue to monitor.
--- NOTE | 2019-02-06 08:30 | NUR ---
Dr. Moreno at bedside.
--- NOTE | 2019-02-06 09:00 | NUR ---
Dr. Whitfield and Dr. Bela Mata at bedside.
--- NOTE | 2019-02-06 10:30 | NUR ---
Medication dosages, usages, and side effects explained to patient. Patient verbalized understanding. Will continue to monitor.
--- NOTE | 2019-02-06 10:43 | NUR ---
Respiratory note: ASSESSED PT FOR PRN MEDNEB TX. HR 110, RR 18, POX 97%. BREATH SOUNDS CLEAR THROUGHOUT. PT SAYS HER BREATHING IS FEELING FINE. NO S/S OF RESPIRATORY DISTRESS. MEDNEB TX NOT INDICATED. WROTE RT NAME AND PAGER NUMBER ON WHITEBOARD, ADVISED PT TO CALL FOR RT IF NEEDED.
[2019-02-06] MEDS: LEVOFLOXACIN 500 MG TAB PO SCH (11:14)
[2019-02-06] MEDS: PANTOPRAZOLE 40 MG TAB PO SCH (11:14)
[2019-02-06] MEDS: ENOXAPARIN SOD 60 MG/0.6 ML SYRINGE SC SCH ×2 (11:14→22:18)
[2019-02-06] MEDS: METOPROLOL TARTRATE 25 MG TAB PO SCH ×2 (11:15→22:18)
[2019-02-06 12:00] VITALS: BP 133/70
--- NOTE | 2019-02-06 12:30 | NUR ---
Patient sitting up in bed eating lunch. Will continue to monitor.
--- NOTE | 2019-02-06 15:05 | NUR ---
Nutrition Follow-up Notes Wt.: 65.4 kg Pt's on oxygen via nasal cannula, asleep, no immediate family member at bedside during rounds this morning. Pt's s/p Thoracentesis (02/01/19), no signs of distress noted earlier, currently on Fine chop with Ensure High Protein 1 carton TID, with fair PO of avg 65% x 5 per RN doc Est. Needs BW [id number] kcal (25-30 kcal/kgBW), 62-74 gms pro (1.0-1.2 gms/kgBW). Will continue to monitor pertinent labs and reassess nutrient need prn Labs: all nutrition related lab values wnl except ALB 3.3 L. Skin: Ford scale 15, mod risk, pt's right upper posterior chest incision dry and intact per street light wirer. GI: Pt had 2 BM 02/05/[address] wirer. PES: Altered nutrition related lab values r/t acute/chronic medical condition aeb hyperchloremia, low Cr, hyperbilirubinemia, mild hypoalbuminemia Increased nutrient needs r/t current/chronic medical condition aeb Right breast mass,Right large pleural effusion, mild hypoalbuminemia on ONS with <75% consumed meals Will continue to monitor PO intake, skin status, pertinent labs and weight trend. F/u in 3 to 5 days. Rec.: 1.) Continue close supervision and feeding assistance prn during meals. 2.) If Albumin level continues trending down, consider Prostat 1 pkt BID. 3.) Refer pt to RD for further nutrition education and weight monitoring upon discharge. 4.) Continue current plan of care.
--- NOTE | 2019-02-06 18:30 | NUR ---
End of shift note: Patient sitting up in bed eating dinner independently. Patient A&Ox4. Patient on the monitor. IV left forearm 22G saline locked, patent, clean, dry, and intact. Patient on 3L NC saturation at 97%. Right upper back chest tube to gravity, dressing clean, dry, and intact. No drainage from chest tube at all today. S/S of distress/SOB or pain. Bed locked and in the lowest position, side rails upx2, call light with in reach. Report to be given to mine shifter RN. Will continue to monitor.
--- NOTE | 2019-02-06 19:41 | NUR ---
received pt from day rn poc reviewed
[2019-02-06 20:00] VITALS: BP 139/72
--- NOTE | 2019-02-06 21:50 | NUR ---
bedpan offered, pt denies pain or discomfort
[2019-02-06] MEDS: traZODone HCL 50 MG TAB PO SCH (22:18)
[2019-02-06] MEDS: ALPRAZolam 0.5 MG TAB PO PRN (22:18)
--- NOTE | 2019-02-06 23:38 | NUR ---
resting with eyes closed no s/s of distress, bed alarm intact call light within pts reach
--- NOTE | 2019-02-07 05:29 | NUR ---
no change resp even and unlabored no c/o pain or discomfort
--- NOTE | 2019-02-07 06:05 | NUR ---
RT NOTE: WENT TO PTS ROOM TO ASSESS FOR PRN BREATHING TX, PT SLEEPING AT THIS TIME. NO S/S OF SOB. PT IS ON 2L NC, SPO2 94%, HR 75, RR 18. WILL CONTINUE TO MONITOR PT.
--- NOTE | 2019-02-07 06:20 | NUR ---
partial bath and linen change given
--- NOTE | 2019-02-07 07:18 | NUR ---
report given to am nurse poc reviewed
[2019-02-07 08:00] VITALS: BP 125/64
[2019-02-07] MEDS: Ensure HIGH Protein Chocolate 8oz Bottle PO SCH ×3 (08:00→18:00)
--- NOTE | 2019-02-07 08:00 | NUR ---
Opening Shift Note Assumed care of patient, awake and alert. Patient A&Ox4. Patient on the monitor. IV left forearm 22G saline locked, patent, clean, dry, and intact. Patient on 3L NC saturation at 97%. Right upper back chest tube on low continuous suction with no drainage, dressing clean, dry, and intact. No S/S of distress/SOB or pain. Instructed on POC and to call for assist PRN. Bed locked and in the lowest position, side rails upx2, call light with in reach. Will continue to monitor.
--- NOTE | 2019-02-07 08:30 | NUR ---
Patient sitting up in bed eating independently. Will continue to monitor.
--- NOTE | 2019-02-07 10:00 | NUR ---
Medication dosages, usages, and side effects explained to patient. Patient verbalized understanding. Will continue to monitor.
--- NOTE | 2019-02-07 10:30 | NUR ---
Dr. Bela Mata and Dr. Parada at bedside. New order for Pleurx placement tomorrow to be done bedside by Dr. Parada. CT chest without contrast and DVT ultrasound lower extremity. Hold lovenox starting now until procedure is done tomorrow. Obtain consent for Pleurx.
--- NOTE | 2019-02-07 10:45 | NUR ---
Dr. Parada removed chest tube. Catheter intact and pressure dressing place. Will continue to monitor.
[2019-02-07] MEDS: LEVOFLOXACIN 500 MG TAB PO SCH (10:52)
[2019-02-07] MEDS: ENOXAPARIN SOD 60 MG/0.6 ML SYRINGE SC SCH ×2 (10:53→22:00)
[2019-02-07] MEDS: PANTOPRAZOLE 40 MG TAB PO SCH (10:53)
[2019-02-07] MEDS: METOPROLOL TARTRATE 25 MG TAB PO SCH ×2 (10:54→22:18)
--- NOTE | 2019-02-07 11:37 | NUR ---
PT Hold PT for patient today as per WAYLON Flores. Addendum: 02/07/19 at 1138 by SCOTT CHAVES PTT Amended: Links added.
[2019-02-07 11:45] VITALS: BP 116/57
--- NOTE | 2019-02-07 12:30 | NUR ---
Patient sitting up in bed eating lunch. Will continue to monitor.
--- NOTE | 2019-02-07 15:00 | NUR ---
Patient resting at this time. No S/S of pain/SOB or distress noted. Will continue to monitor.
[2019-02-07 15:54] VITALS: BP 116/57
--- NOTE | 2019-02-07 16:10 | NUR ---
Patient taken to CT scan.
--- NOTE | 2019-02-07 16:30 | NUR ---
Patient back from CT. Patient resting at this time. Will continue to monitor.
--- NOTE | 2019-02-07 18:20 | NUR ---
End of shift note: Patient resting at this time. Patient A&Ox4. Patient on the monitor. IV left forearm 22G saline locked, patent, clean, dry, and intact. Patient on 3L NC saturation at 97%. Dressing to right upper back clean, dry, and intact. No S/S of distress/SOB or pain. Bed locked and in the lowest position, side rails upx2, call light with in reach. Report to be given to fast food shift supervisor RN. Will continue to monitor.
[2019-02-07 19:40] VITALS: BP 119/64
[2019-02-07] MEDS: ALPRAZolam 0.5 MG TAB PO PRN (20:55)
[2019-02-07] MEDS: traZODone HCL 50 MG TAB PO SCH (22:17)
--- NOTE | 2019-02-08 01:45 | NUR ---
PT SEEN SLEEPING IN BED ON 2L NC WITH SPO2 98%, BS CLEAR AND DIMINISHED. NO RESP DISTRESS NOTED. PRN NEB TX NOT GIVEN AT THIS TIME.
--- NOTE | 2019-02-08 04:29 | NUR ---
Pt has been stable this shift, no S/S of distress. Was a bit anxious at beginning of shift but Xanax given, tolerated well. Dressing CDI. Will continue to monitor.
--- NOTE | 2019-02-08 06:15 | NUR ---
RT NOTE: WENT TO PTS ROOM TO ASSESS FOR PRN BREATHING, PT SLEEPING AT THIS TIME. NO S/S OF SOB. HR 89, SPO2 95% ON 3L NC, RR 20. WILL CONTINUE TO MONITOR PT.
[2019-02-08 08:00] VITALS: BP 119/68
[2019-02-08] MEDS: Ensure HIGH Protein Chocolate 8oz Bottle PO SCH ×3 (08:00→18:00)
--- NOTE | 2019-02-08 08:00 | NUR ---
OPENING NOTE Received patient in room 263 resting in bed with eyes closed. Patient easily arousable to verbal stimuli, Alert/oriented X 4, pupils reactive, moves all extremities with weakness. Sinus rhythm in the 90's on bedside monitor, pulses palpable on upper/lower extremities with no edema. Abdomen soft, non-tender, non distended with bowel sounds present in all quadrants and last bowel movement on 02/06/2019 per NOC nurse Meena. Patient able to use bedpan to void. IV to the left forearm 22G: good blood return and flushes easily: Hep locked.Dressing to the right flank clean, dry and intact. Patient denies any pain at this time. Call light with in reach and bed at lowest position with side rails up. Will continue to monitor patient.
--- NOTE | 2019-02-08 08:45 | NUR ---
ELIMINATION Patient requested bedpan, patient was able to void X 1. Patient able to provided self care and tolerated well.
[2019-02-08] MEDS: ENOXAPARIN SOD 60 MG/0.6 ML SYRINGE SC SCH (09:52)
[2019-02-08] MEDS: LEVOFLOXACIN 500 MG TAB PO SCH (10:06)
[2019-02-08] MEDS: PANTOPRAZOLE 40 MG TAB PO SCH (10:06)
[2019-02-08] MEDS: METOPROLOL TARTRATE 25 MG TAB PO SCH ×2 (10:07→23:01)
[2019-02-08] MEDS: ACETAMINOPHEN 500 MG TAB PO PRN (10:07)
--- NOTE | 2019-02-08 10:40 | NUR ---
FAMILY Patients daughters at bedside, updated on patient condition and questions/concerns answered.
[2019-02-08 12:00] VITALS: BP 114/64
--- NOTE | 2019-02-08 13:15 | NUR ---
MD Dr. Latham at bedside updated on patient condition by charge nurse Clyde, who is covering this RN. No new orders obtained.
--- NOTE | 2019-02-08 14:15 | NUR ---
ELIMINATION Patient requested bedpan, patient was able to void X 1. Patient able to provided self care and tolerated well.
--- NOTE | 2019-02-08 14:20 | NUR ---
MD Dr. Capellan at bedside updated on patient condition by charge nurse Clyde, who is covering this RN for lunch. gave new orders to Clyde, who will input into system. spoke to patient regarding plan of care.
--- NOTE | 2019-02-08 15:15 | NUR ---
PHYSICAL THERAPY Physical therapy at bedside.
[2019-02-08 15:48] VITALS: BP 114/61
--- NOTE | 2019-02-08 16:20 | NUR ---
FAMILY Patients daughter at bedside, updated on patient condition and all questions/concerns answered.
--- NOTE | 2019-02-08 17:30 | NUR ---
ELIMINATION Patient requested bedpan, patient was able to void X 1. Patient able to provided self care and tolerated well.
[2019-02-08] MEDS: ALPRAZolam 0.5 MG TAB PO PRN (19:55)
[2019-02-08 20:00] VITALS: BP 132/71
--- NOTE | 2019-02-08 21:10 | NUR ---
Respiratory note: PT ASSESSED FOR PRN MED NEB TX. HR 97, RR 14, SPO2 96% ON 2L NC. NO SIGNS OF ANY RESPIRATORY DISTRESS NOTED. ADVISED PT TO CALL IF TX IS NEEDED.
[2019-02-08] MEDS: traZODone HCL 50 MG TAB PO SCH (23:02)
[2019-02-09] VITALS (7 sets, daily range): BP systolic 105–125; BP diastolic 61–72
--- NOTE | 2019-02-09 07:35 | NUR ---
Opening Shift Note Assumed care of patient, awake and alert. No S/S of distress/SOB or pain. See interventions for complete assessment. Bed locked on lowest position, side rails up x2, bed alarms on at all times, call resendez within reach, instructed on POC and to call for assist PRN, will continue to monitor for changes Q1hr and PRN.
--- NOTE | 2019-02-09 07:45 | NUR ---
Patient had moderate amount of soft dark brown stool on bedpan, given perineal care. Skin integrity assessed for any changes. Linens changed. Patient repositioned for comfort. Patient tolerated well.
[2019-02-09] MEDS: Ensure HIGH Protein Chocolate 8oz Bottle PO SCH ×3 (08:32→18:00)
--- NOTE | 2019-02-09 09:05 | NUR ---
Respiratory note: ASSESSED PT FOR PRN TX PT WAS AWAKE AND ALERT NO RESP DISTRESS NOTED. HR 97, RR 16, SPO2 94% ON 2L NC. BS ARE CLEAR, NO INDICATION FOR TX AT THIS TIME. PT KNOWS TO HAVE RT PAGED IF TX IS NEEDED.
[2019-02-09] MEDS: PANTOPRAZOLE 40 MG TAB PO SCH (09:19)
[2019-02-09] MEDS: LEVOFLOXACIN 500 MG TAB PO SCH (09:19)
[2019-02-09] MEDS: METOPROLOL TARTRATE 25 MG TAB PO SCH ×2 (09:20→21:49)
--- NOTE | 2019-02-09 09:26 | NUR ---
Patient out of bed to bedside chair with Caio PT, fall precautions in placed. ROM done. Patient tolerated well.
[2019-02-09] MEDS: ENOXAPARIN SOD 30 MG/0.3 ML SYRINGE SC SCH (10:10)
--- NOTE | 2019-02-09 10:26 | NUR ---
RADIOLOGY: S/W primary RN, Rebecca regarding US guided Rt Pleurx catheter placement. Nurse states that per Dr Dickson's note, he wants to wait 1-2 days before trying again and ordered Lovenox. Nurse has already administered Lovenox dose. Corazon, US aware and will notify Dr Menchaca.
[2019-02-09] MEDS ORDERED: LIDOCAINE 2%HCL (LOCAL ANESTH.) INJ 20ML MDV ONE (10:59)
--- NOTE | 2019-02-09 13:10 | NUR ---
Dr Marques at bedside, updated on patient's status. Informed Pleurex catheter will be inserted tomorrow per Radiology, MD verbalized understanding. Patient seen and examined. No new orders at this time.
--- NOTE | 2019-02-09 14:43 | NUR ---
Dr De Anda at bedside, updated on patient's status. Patient seen and examined. No new orders at this time.
--- NOTE | 2019-02-09 19:15 | NUR ---
OPENING SHIFT RECEIVED REPORT FROM DAY SHIFT RN. ASSUMED CARE OF PATIENT. PATIENT IN BED WATCHING TV WITH NO SIGNS OR SYMPTOMS OF SOB, PAIN OR DISTRESS. CURRENTLY ON 2L 02 NASAL CANNULA, 02 SAT - 98%. UPDATED PATIENT ON PLAN OF CARE. RIGHT BACK S/P THORACENTESIS - CLEAN/DRY/INTACT DRESSED WITH GAUZE AND TRANSPARENT DRESSING. LEFT FOREARM IV - CLEAN/DRY/INTACT. BED IN LOWEST POSITION, SIDE RAILS UP X2, CALL LIGHT WITHIN REACH. WILL CONTINUE TO MONITOR.
--- NOTE | 2019-02-09 19:46 | NUR ---
Paged Dr Moreno/Ave regarding RT breast biopsy order clarification. Awaiting call back.
--- NOTE | 2019-02-09 19:55 | NUR ---
Received call from Dr Dorado, telephone order for Radiology Consult for breast biopsy received. Orders read back and verified. Will carry out.
[2019-02-09] MEDS: traZODone HCL 50 MG TAB PO SCH (21:47)
[2019-02-09] MEDS: ALPRAZolam 0.5 MG TAB PO PRN (21:54)
--- NOTE | 2019-02-09 22:01 | NUR ---
PT SEEN AND ASSESSED FOR PRN MED NEB TX AT 2201. TX NOT INDICATED AT THIS TIME. PT DISPLAYING NO SIGNS OF RESPIRATORY DISTRESS AND ALSO DENIES HAVING ANY. BREATH SOUNDS WERE CLEAR BILATERALLY. HR 101 RR 18 POX 97% ON 2L NASAL CANNULA. PT AWARE TO CALL FOR RT IF ANY DISTRESS OCCURS.
[2019-02-10] VITALS (7 sets, daily range): BP systolic 104–133; BP diastolic 54–75
--- NOTE | 2019-02-10 00:35 | NUR ---
ROUNDS PATIENT IN BED SLEEPING WITH NO SIGNS OR SYMPTOMS OF SOB, PAIN OR DISTRESS. BED IN LOWEST POSITION, SIDE RAILS UP X2, CALL LIGHT WITHIN REACH. WILL CONTINUE TO MONITOR.
--- NOTE | 2019-02-10 04:10 | NUR ---
ROUNDS PATIENT IN BED SLEEPING WITH NO SIGNS OR SYMPTOMS OF SOB, PAIN OR DISTRESS. REPOSITIONED AT THIS TIME. BED IN LOWEST POSITION, SIDE RAILS UP X2, CALL LIGHT WITHIN REACH. WILL CONTINUE TO MONITOR.
--- NOTE | 2019-02-10 06:45 | NUR ---
END OF SHIFT PATIENT IN BED SLEEPING WITH NO SIGNS OR SYMPTOMS OF SOB, PAIN OR DISTRESS. CURRENTLY ON 2L, 02 SAT - 95%. LEFT FOREARM IV - CLEAN/DRY/INTACT. REPOSITIONED FOR COMFORT. BED IN LOWEST POSITION, SIDE RAILS UP X2, CALL LIGHT WITHIN REACH. WILL ENDORSE CARE TO DAY SHIFT RN.
[2019-02-10] MEDS: Ensure HIGH Protein Chocolate 8oz Bottle PO SCH ×3 (08:00→18:00)
--- NOTE | 2019-02-10 08:00 | NUR ---
Opening Shift Note Assumed care of patient, awake and alert. Patient A&Ox4. Patient on the monitor. IV left forearm 22G saline locked, patent, clean, dry, and intact. Patient on 2L NC saturation at 97%. No S/S of distress/SOB or pain. Instructed on POC and to call for assist PRN. Bed locked and in the lowest position, side rails upx2, call light with in reach. Will continue to monitor.
--- NOTE | 2019-02-10 08:30 | NUR ---
Patient sitting up in bed eating breakfast independently. Will continue to monitor.
--- NOTE | 2019-02-10 09:00 | NUR ---
PT assisted patient to bedside chair. No S/S of pain/SOB or distress noted. Will continue to monitor.
[2019-02-10] MEDS: LEVOFLOXACIN 500 MG TAB PO SCH (09:54)
[2019-02-10] MEDS: PANTOPRAZOLE 40 MG TAB PO SCH (09:54)
[2019-02-10] MEDS: ENOXAPARIN SOD 30 MG/0.3 ML SYRINGE SC SCH (09:55)
[2019-02-10] MEDS: METOPROLOL TARTRATE 25 MG TAB PO SCH ×2 (09:55→21:37)
--- NOTE | 2019-02-10 10:00 | NUR ---
Medication dosages, usages, and side effects explained to patient. Patient verbalized understanding. Will continue to monitor.
--- NOTE | 2019-02-10 12:45 | NUR ---
Patient sitting up in bed eating breakfast independently. Will continue to monitor.
--- NOTE | 2019-02-10 15:00 | NUR ---
Patient still sitting on bedside chair. Patient tolerating. No S/S of Pain/SOB or distress noted. Will continue to monitor.
--- NOTE | 2019-02-10 17:15 | NUR ---
Patient back in bed and resting now. Will continue to monitor.
--- NOTE | 2019-02-10 18:29 | NUR ---
End of shift note: Patient sitting up in bedside chair talking with family. Patient A&Ox4. Patient on the monitor. IV left forearm 22G saline locked, patent, clean, dry, and intact. Patient on 2L NC saturation at 98%. No S/S of distress/SOB or pain. Bed locked and in the lowest position, side rails up x2, call light with in reach. Report to be given to hotel reservationist RN. Will continue to monitor.
--- NOTE | 2019-02-10 19:01 | NUR ---
PT SEEN EATING DINNER ON 2L NC, SPO2 98% BS CLEAR AND DIMINISHED. PRN NEB TX NOT INDICATED AT THIS TIME.
--- NOTE | 2019-02-10 20:15 | NUR ---
ASSESSMENT: OOB, USING COMMODE. SMALL AMT. OF CONCENTRATED, URINE. SMALL BOWEL MOVEMENT, FIRM, DARK GREEN. DENIES ANY ABD. PAIN. HR 120'S, SINUS, SBP 130'S. LUNG CLEAR UPPER LOBES RALES TO RIGHT LOWER LOBE. O2 2L/NC, SATS 95% ABDOMEN - SOFT (+) B.S. URINE - BSC, CONCENTRATED. SKIN - HARD LUMP TO RIGHT BREAST, LUMP TO RU BACK, SITES TO PREVIOUS PUNCTURE SITES NOTED, CLEAN AND INTACT. IV SITE TO LFA #22 INTACT. ACTIVITY - REQUIRES ASSISTANCE WITH TRANSFERRING BACK TO BED. GENERALIZED WEAKNESS. POTENTIAL FOR FALL. YELLOW WRIST BAND IN PLACE. WILL CONTINUE TO MONITOR.
[2019-02-10] MEDS: traZODone HCL 50 MG TAB PO SCH (21:34)
[2019-02-11] VITALS (7 sets, daily range): BP systolic 106–122; BP diastolic 58–66
[2019-02-11] MEDS: ALPRAZolam 0.5 MG TAB PO PRN (01:15)
--- NOTE | 2019-02-11 01:16 | NUR ---
AWAKE, STATES FEELS VERY ANXIOUS AND REQUEST MEDICATION TO HELP WITH ANXIETY. WILL PROVIDE XANAX AND BATH AT THIS TIME, PT. AGREES. TACHYCARDIC WITH ACTIVITY. DENIES ANY PAIN.
[2019-02-11] MEDS: Ensure HIGH Protein Chocolate 8oz Bottle PO SCH ×3 (08:00→18:00)
--- NOTE | 2019-02-11 08:00 | NUR ---
End of shift note: Patient sitting up in bed eating dinner. Patient A&Ox4. Patient on the monitor. IV left forearm 22G saline locked, patent, clean, dry, and intact. Patient on 2L NC saturation at 96%. No S/S of distress/SOB or pain. Report to be given to rn shift mgr RN. Bed locked and in the lowest position, side rails upx2, call light with in reach. Will continue to monitor.
--- NOTE | 2019-02-11 08:30 | NUR ---
Patient sitting up in bed eating breakfast independently. Will continue to monitor.
--- NOTE | 2019-02-11 09:15 | NUR ---
PT assisted patient walked around nurses station with a walker and standby assist. Patient now sitting in bedside chair talking with family. Will continue to monitor.
[2019-02-11] MEDS: PANTOPRAZOLE 40 MG TAB PO SCH (09:22)
[2019-02-11] MEDS: LEVOFLOXACIN 500 MG TAB PO SCH (09:22)
[2019-02-11] MEDS: METOPROLOL TARTRATE 25 MG TAB PO SCH ×2 (09:23→22:38)
[2019-02-11] MEDS: ENOXAPARIN SOD 30 MG/0.3 ML SYRINGE SC SCH (09:24)
--- NOTE | 2019-02-11 10:00 | NUR ---
Medication dosages, usages, and side effects explained to patient. Patient verbalized understanding. Will continue to monitor.
--- NOTE | 2019-02-11 11:04 | NUR ---
Nutrition Follow-up Notes Wt.: 65.4 kg Pt's on oxygen via nasal cannula, asleep, no immediate family member at bedside during rounds this morning. per reocrds pt with lung mass. per nursing pt with anxiety no signs of distress noted earlier, currently on Fine chop with Ensure High Protein 1 carton TID, with adequte PO of 75% x 4 per RN doc Est. Needs BW [id number] kcal (25-30 kcal/kgBW), 62-74 gms pro (1.0-1.2 gms/kgBW). Will continue to monitor pertinent labs and reassess nutrient need prn Labs: all nutrition related lab values wnl except GLU 116 H Skin: Ford scale 17, mod risk, pt's right upper posterior chest incision dry and intact per artificial cherry maker. GI: Pt had 1 BM on 02/10 per artificial cherry maker. PES: Altered nutrition related lab values r/t acute/chronic medical condition aeb hyperchloremia, low Cr, hyperbilirubinemia, mild hypoalbuminemia Increased nutrient needs r/t current/chronic medical condition aeb Right breast mass,Right large pleural effusion, mild hypoalbuminemia on ONS with <75% consumed meals Will continue to monitor PO intake, skin status, pertinent labs and weight trend. F/u in 3 to 5 days. Rec.: 1.) Continue close supervision and feeding assistance prn during meals. 2.) If Albumin level continues trending down, consider Prostat 1 pkt BID. 3.) Refer pt to RD for further nutrition education and weight monitoring upon discharge. 4.) Continue current plan of care.
--- NOTE | 2019-02-11 11:15 | NUR ---
Patient taken to Radiology for procedure by Henry CONNORS.
[2019-02-11] MEDS ORDERED: MIDAZOLAM HCL 1MG/1ML-2 ML VIAL IV ONE (11:45)
[2019-02-11] MEDS ORDERED: fentaNYL CITRATE 100 MCG/2 ML VL IV ONE (11:45)
[2019-02-11] MEDS ORDERED: MIDAZOLAM HCL 1MG/1ML-2 ML VIAL ONE (11:46)
[2019-02-11] MEDS ORDERED: fentaNYL CITRATE 100 MCG/2 ML VL ONE (11:46)
--- NOTE | 2019-02-11 13:00 | NUR ---
Patient back from Radiology. Pleurx placement mid lateral right side, intact and dressing clean and dry. Patient denies any pain at this time. Pleurx patient supplies at bedside. Patient sitting up in bed eating lunch at this time. Will continue to monitor.
[2019-02-11] MEDS: ACETAMINOPHEN 500 MG TAB PO PRN (14:01)
--- NOTE | 2019-02-11 15:00 | NUR ---
Patient resting at this time. No S/S of pain/SOB or distress noted at this time. Will continue to monitor.
--- NOTE | 2019-02-11 15:00 | NUR ---
ASSESSED PT FOR MED NEB BREATHING TREATMENT, PT ON 2L NC WITH SPO2 96%, HR 101, RR 16 DIMINISHED BS, NO SOB, NO RESPIRATORY DISTRESS NOTED. WILL CONTINUE TO MONITOR PT.
--- NOTE | 2019-02-11 15:10 | NUR ---
Dr. De Anda at bedside.
--- NOTE | 2019-02-11 15:49 | NUR ---
ss order for home 02 faxed to [place]
--- NOTE | 2019-02-11 15:50 | NUR ---
RN to get updated ABG if needed for home 02 ss order
--- NOTE | 2019-02-11 16:45 | NUR ---
Home 02 order is not in [place] [facility]'s system yet, so it may be tomorrow before o2 is arranged by [facility]
--- NOTE | 2019-02-11 17:00 | NUR ---
Patient resting at this time. No S/S of pain/SOB or distress noted at this time. Will continue to monitor.
[2019-02-11] MEDS: HYDROcodone-ACET 5/325MG TAB PO PRN (18:31)
--- NOTE | 2019-02-11 19:30 | NUR ---
OPEN NOTES ASSUMED CARE OF PATIENT. VS STABLE. COMPLAINS OF PAIN AT THE RIGHT LATERAL SIDE BREAST PART BUT LESSER AFTER THE PAIN MEDICATION WAS GIVEN. RIGHT PLEUR-X DRAIN NOTED DRESSING DRY AND INTACT.FULL ASSESSMENT DONE-REFER INTERVENTION.
--- NOTE | 2019-02-11 19:43 | NUR ---
Respiratory note: ASSESSED PT FOR PRN TX PT WAS AWAKE AND ALERT NO RESP DISTRESS NOTED. HR 103, RR 18, SPO2 98% ON 2L NC. BS ARE CLEAR ON THE LEFT, DIMINISHED ON THE RIGHT. NO INDICATION FOR TX AT THIS TIME. PT KNOWS TO HAVE RT PAGED IF TX IS NEEDED.
--- NOTE | 2019-02-11 20:30 | NUR ---
DAUGHTER AT BEDSIDE PATIENT'S DAUGHTER AT BEDSIDE. EXPLAINED THAT PATIENT HAS TRANSFER ORDERS FOR TONIGHT. SHE SAID THEY TOLD HER ABOUT THAT. ANSWERED ALL QUESTIONS. VERBALIZED UNDERSTANDING.
--- NOTE | 2019-02-11 21:00 | NUR ---
REPORT REPORT GIVEN TO WAYLON JACOBS
--- NOTE | 2019-02-11 21:15 | NUR ---
IV insertion IV access obtained, via clean sterile technique by inserting 20 gauge catheter at LEFT WRIST after 2 attempt(s). IV secured properly. No trauma to site. Patient tolerated well. NOTE: LEFT FA IV REMOVED
--- NOTE | 2019-02-11 21:50 | NUR ---
TRANSFERRED PATIENT TO TELEMETRY FLOOR VS STABLE PRIOR TO TRANSFER PATIENT ON TELE MONITOR #22
--- NOTE | 2019-02-11 22:00 | NUR ---
[facility] pt transferred to floor ANAI MONTOYA transferred to MS/T Rm. 251B via rney on shelter monitor and portable 02. All patient medications and personal belongings transfered with patient to receiving floor. SBAR received before transfer via telephone from WAYLON Ward. Patient care transfered to TYRELL Breaux,RN who introduced pt and her dtr, Lisandra, to the unit, and bed control/nurse call light and visiting hours. Bed low with HOB in Humphreys's position. Nurse call light attached to HOB bed rail and resting in pt's lap. Pt instructed to call if needs anything; pt JACEK.
[2019-02-11] MEDS: traZODone HCL 50 MG TAB PO SCH (22:36)
[2019-02-12] MEDS: HYDROcodone-ACET 5/325MG TAB PO PRN ×2 (04:21→09:45)
[2019-02-12 05:00] VITALS: BP 115/60
[2019-02-12 06:53] LABS: Basophils # (auto) 0.1 uL; Eosinophils # (auto) 0.4 uL; Eosinophils % (auto) 5.3 % (0.0-7.0); Hematocrit 31.9 % (36.0-46.0); Hemoglobin 10.6 g/dL (12.2-16.2); Lymphocytes # (auto) 1.1 uL; Lymphocytes % (auto) 15.3 % (10.0-50.0); Mean Corpuscular Hemoglobin 29.1 pg (28.0-32.0); Mean Corpuscular Hgb Conc. 33.1 g/dL (32.0-36.0); Mean Corpuscular Volume 87.8 fL (80.0-100.0); Monocytes # (auto) 0.6 uL; Monocytes % (auto) 8.5 % (0.0-12.0); Neutrophils # (auto) 4.9 uL; Neutrophils % (auto) 69.9 % (37.0-80.0); Platelet Count (auto) 245 10^3/uL (140-450); Red Blood Cells 3.64 10^6/uL (4.0-5.20); Red Cell Distribution Width 13.3 % (11.8-14.3)
[2019-02-12 07:09] LABS: BUN/Creatinine Ratio 26.2; Calcium 9.4 mg/dL (8.5-10.1); Magnesium 2.4 mg/dL (1.6-2.6)
--- NOTE | 2019-02-12 07:59 | NUR ---
SS note MD needs to write 02 to include freq and rate and method, and abg to show pt needs o2 per authorizing agency
[2019-02-12 09:00] VITALS: BP 118/55
--- NOTE | 2019-02-12 09:08 | NUR ---
Respiratory note: ASSESSED PT FOR PRN MEDNEB TX. HR 103, RR 14, POX 94% ON 3L NC. BREATH SOUNDS CLEAR/DIMINISHED THROUGHOUT. NO S/S OF RESPIRATORY DISTRESS. MEDNEB TX NOT INDICATED AT THIS TIME. ADVISED PT TO CALL FOR RT IF NEEDED.
[2019-02-12] MEDS: ENOXAPARIN SOD 30 MG/0.3 ML SYRINGE SC SCH (09:36)
[2019-02-12] MEDS: LEVOFLOXACIN 500 MG TAB PO SCH (09:37)
[2019-02-12] MEDS: Ensure HIGH Protein Chocolate 8oz Bottle PO SCH ×3 (09:37→18:44)
[2019-02-12] MEDS: PANTOPRAZOLE 40 MG TAB PO SCH (09:37)
[2019-02-12] MEDS: METOPROLOL TARTRATE 25 MG TAB PO SCH ×2 (09:37→21:18)
--- NOTE | 2019-02-12 10:25 | NUR ---
Spoke with Dr. Menchaca-radiologist re: draining of fluids from pleurex catheter today per Dr. De Anda. Per Dr. Menchaca the catheter was just placed yesterday and drained approximately 1Liter of pleural fluids, the Chest X-ray done this morning showed a large mass on the right lung. Drainage may be done in a couple of days. Patient and family should be educated on how to drain fluids on pleurex catheter prior to discharge. Addendum: 02/12/19 at 1033 by Kiely Masters RN Dr. De Anda made aware of this. Instructions received. Patient is a possible discharge tomorrow.
--- NOTE | 2019-02-12 12:57 | NUR ---
Spoke to primary RN approx 1000 hrs to let her know MD needs to write an accurate order for home 02. Still waiting for new order
--- NOTE | 2019-02-12 14:25 | NUR ---
O2 sat on room air-84%.
--- NOTE | 2019-02-12 14:28 | NUR ---
Spoke with Dr. Adilson valdez: O2 sat on room air-84%. Orders received for arrangement of continuous home O2 at 2lpm. Addendum: 02/12/19 at 1431 by Kiley Masters RN Aisha CONNORSdirector of knowledge management made aware.
[2019-02-12 17:00] VITALS: BP 117/69
--- NOTE | 2019-02-12 20:15 | NUR ---
Opening Shift Note: A&Ox4, resting in bed. Currently on 2.5 LO2 via NC; pain level 0/10; at baseline per patient, ambulates independently without assistive devices; currently SBA to BSC. Bed locked in lowest position, side rails up x2, call light within reach, and bed alarm on for patient safety. IV left wrist 20 g IID inserted on 02/11/19. [facility] downgrade on 02/11/19. Patient is s/p thoracentesis on 01/27/19 with 1650 ml removal and on 01/29/19 with 1400 ml removal; s/p right lung biopsy on 01/30/19, right breast biopsy on 02/02/19 and repeat biopsy on 02/11/19. Patient had a right lateral pleurex catheter inserted on 02/11/19. Right upper back dressing CDI and right breast bandaid CDI. POC discussed and questions answered. Will continue to round and reposition prn.
[2019-02-12] MEDS: traZODone HCL 50 MG TAB PO SCH (21:18)
[2019-02-12 22:00] VITALS: BP 134/63
[2019-02-13 05:00] VITALS: BP 110/66
--- NOTE | 2019-02-13 06:22 | NUR ---
PT. ASSESSED FOR PRN. MN. TX. , NO RESP. DISTRESS OR SOB NOTED. PT. STATES TX. NOT NEEDED AT THIS TIME. BS. ARE CLEAR AND DIMINISHED. HR=95,RR=16,SP02=94% ON 2LPM NC. PT. IS AWARE SHE MAY CALL IF SHE NEEDS TX. NO TX. GIVEN AT THIS TIME.
[2019-02-13 06:38] LABS: Basophils # (auto) 0.1 uL; Basophils % (auto) 1.1 % (0.0-2.0); Eosinophils # (auto) 0.4 uL; Eosinophils % (auto) 5.2 % (0.0-7.0); Hematocrit 31.5 % (36.0-46.0); Hemoglobin 10.7 g/dL (12.2-16.2); Lymphocytes # (auto) 1.3 uL; Lymphocytes % (auto) 17.4 % (10.0-50.0); Mean Corpuscular Hemoglobin 29.6 pg (28.0-32.0); Mean Corpuscular Hgb Conc. 33.8 g/dL (32.0-36.0); Mean Corpuscular Volume 87.4 fL (80.0-100.0); Monocytes # (auto) 0.6 uL; Monocytes % (auto) 7.7 % (0.0-12.0); Neutrophils # (auto) 4.9 uL; Neutrophils % (auto) 68.6 % (37.0-80.0); Platelet Count (auto) 244 10^3/uL (140-450); Red Cell Distribution Width 13.2 % (11.8-14.3); White Blood Cell 7.2 10^3/uL (4.4-10.8)
[2019-02-13 06:51] LABS: Potassium 4.3 mmol/L (3.5-5.1)
[2019-02-13 07:03] LABS: BUN/Creatinine Ratio 17.4; Calcium 9.6 mg/dL (8.5-10.1); Magnesium 2.4 mg/dL (1.6-2.6)
--- NOTE | 2019-02-13 07:50 | NUR ---
Opening Shift Note Assumed care of patient, awake and alert. No S/S of distress/SOB or pain. Instructed on POC and to call for assist PRN, will continue to monitor for changes Q1hr and PRN. Patient stated that she would like to go home, explained that we are waiting for the biopsy result, and to clear for discharge home from oncologist, patient made aware.
[2019-02-13] MEDS ORDERED: MIDAZOLAM HCL 1MG/1ML-2 ML VIAL ONE (08:36)
[2019-02-13] MEDS ORDERED: fentaNYL CITRATE 100 MCG/2 ML VL ONE (08:36)
[2019-02-13 09:00] VITALS: BP 120/65
[2019-02-13] MEDS: PANTOPRAZOLE 40 MG TAB PO SCH (09:50)
[2019-02-13] MEDS: ENOXAPARIN SOD 30 MG/0.3 ML SYRINGE SC SCH (09:50)
[2019-02-13] MEDS: LEVOFLOXACIN 500 MG TAB PO SCH (09:51)
[2019-02-13] MEDS: METOPROLOL TARTRATE 25 MG TAB PO SCH (09:51)
[2019-02-13] MEDS: Ensure HIGH Protein Chocolate 8oz Bottle PO SCH ×2 (09:52→13:01)
--- NOTE | 2019-02-13 10:00 | NUR ---
Patient sitting on the chair with assist, no accident noted, her families at the bedside, patient stated that she wants to take to pill for anxiety. Will continue to monitor and care.
--- NOTE | 2019-02-13 10:28 | NUR ---
Nora PETER for [facility] called and stated 02 was delivered at beside
--- NOTE | 2019-02-13 10:49 | NUR ---
Patient sitting on the chair, still talking to her families, patient changed her mind, will not taking Xanax at this time, still wants to talk to her families, will continue to monitor and care.
[2019-02-13 13:00] VITALS: BP 114/73
--- NOTE | 2019-02-13 13:30 | NUR ---
Dr. De Anda at the bedside, plan of care discussed with patient, received order to discharge home today, patient made aware.
[2019-02-13] MEDS: ALPRAZolam 0.5 MG TAB PO PRN (13:35)
--- NOTE | 2019-02-13 14:00 | NUR ---
Lisandra (daughter) made aware that patient planned to discharge home today, she will draft roller picker patient to home.
[2019-02-13 16:37] VITALS: BP 107/62
[2019-02-13 17:00] VITALS: BP 107/62
--- NOTE | 2019-02-13 17:00 | NUR ---
Called and talked to Lisandra (daughter), she stated that she will vegetable picker patient before 7pm.
--- NOTE | 2019-02-13 19:40 | NUR ---
Discharge instructions given as ordered. Encourage to follow up with PMD as instructed. All questions and concerns addressed. Patient verbalized understanding. Medication reconciliation form completed and copy given to patient. Home medications held in Pharmacy returned to patient. IV removed with catheter intact, pressure dressing applied. Telemetry unit returned to [facility]. Patient taken to vehicle via wheelchair with all personal belongings, accompanied by staff and family member. No distress noted at time of departure. MRSA sent to Lab.
--- NOTE | 2019-02-13 19:52 | NUR ---
Called [facility] pharmacy for Call in medication : hong as order.
== END 2019-02-13 19:45 | disposition home health service (06) | DRG 180 ==
LOC: ER 17:38 → TELE 17:39 → TELE-WESTW 01-27 16:41 → DOU IN ICU 01-29 01:43 → TELE-EAST 02-11 22:32
PROVIDERS: ADMIT Nurse Practitioner Family; ATTEND Internal Medicine
PROC: 0W993ZZ Drainage of Right Pleural Cavity, Percutaneous Approach (ICD-10-PCS; 2019-01-27)
PROC: 0BBF3ZX Excision of Right Lower Lung Lobe, Percutaneous Approach, Diagnostic (ICD-10-PCS; 2019-01-30)
PROC: 0W993ZZ Drainage of Right Pleural Cavity, Percutaneous Approach (ICD-10-PCS; principal; 2019-02-01)
DX: C34.91 Malignant neoplasm of unspecified part of right bronchus or lung (principal); J96.01 Acute respiratory failure with hypoxia; I26.99 Other pulmonary embolism without acute cor pulmonale; J18.9 Pneumonia, unspecified organism; E44.1 Mild protein-calorie malnutrition; C79.71 Secondary malignant neoplasm of right adrenal gland; J91.8 Pleural effusion in other conditions classified elsewhere; I10 Essential (primary) hypertension; E87.6 Hypokalemia; D72.829 Elevated white blood cell count, unspecified; I70.0 Atherosclerosis of aorta; C50.911 Malignant neoplasm of unspecified site of right female breast; Z79.899 Other long term (current) drug therapy; Z68.23 Body mass index [BMI] 23.0-23.9, adult
CPT/HCPCS: 10022; 36415; 36600; 71045; 71046; 71250; 71275; 74177; 76000; 76604; 76942; 77012; 80048; 80053; 81001; 82805; 82962; 83605; 83735; 83880; 83986; 84484; 85025; 85610; 85730; 86300; 86304; 87040; 87070; 87081; 87086; 87205; 89051; 93005; 93306; 93970; 94640; 94660; 94761; 96365; 96367; 96375; 97110; 97116; 97530; G0378; J0696; J2250; J2405; J3480

== ENCOUNTER 2019-03-18 18:15 | Inpatient (IN) | payer OTHER ==
[~2019-03-18] VITALS: Ht 160 cm; Wt 57.6 kg
[~2019-03-18 18:15] MED LIST: AML5T PO
[2019-03-18 20:14] LABS: Basophils # (auto) 0.1 uL; Basophils % (auto) 0.8 % (0.0-2.0); Eosinophils # (auto) 0.2 uL; Eosinophils % (auto) 2.7 % (0.0-7.0); Hematocrit 36.1 % (36.0-46.0); Hemoglobin 11.6 g/dL (12.2-16.2); Lymphocytes # (auto) 1.9 uL; Lymphocytes % (auto) 23.8 % (10.0-50.0); Mean Corpuscular Hemoglobin 27.1 pg (28.0-32.0); Mean Corpuscular Hgb Conc. 32.1 g/dL (32.0-36.0); Mean Corpuscular Volume 84.5 fL (80.0-100.0); Monocytes # (auto) 0.6 uL; Monocytes % (auto) 7.7 % (0.0-12.0); Neutrophils # (auto) 5.1 uL; Platelet Count (auto) 314 10^3/uL (140-450); Red Blood Cells 4.28 10^6/uL (4.0-5.20); White Blood Cell 7.9 10^3/uL (4.4-10.8)
[2019-03-18 20:47] LABS: Albumin 2.8 g/dL (3.4-5.0); BUN/Creatinine Ratio 7.9; Calcium 9.3 mg/dL (8.5-10.1)
[2019-03-18 20:50] LABS: Bilirubin, Total 0.7 mg/dL (0.2-1.0); Total Protein 7.2 g/dL (6.4-8.2)
[2019-03-18 20:58] LABS: INR 1.08 (0.9-1.15); Partial Thromboplastin Time 23.9 sec (23.64-32.05)
[2019-03-19] MEDS ORDERED: METOPROLOL TARTRATE 50 MG TAB PO ONE (01:00)
[2019-03-19] MEDS ORDERED: DEXTROSE (50%) 50ML SYRG IV PRN (09:30)
[2019-03-19] MEDS ORDERED: MORPHINE SULF INJ 2 MG/ML SYRINGE 1ML IV PRN (09:30)
[2019-03-19] MEDS ORDERED: PROMETHAZINE HCL 25 MG/ML 1ML IV PRN (09:30)
[2019-03-19] MEDS ORDERED: HYDROcodone-ACET 5/325MG TAB PO PRN (09:30)
[2019-03-19] MEDS ORDERED: ACETAMINOPHEN 500 MG TAB PO PRN (09:30)
[2019-03-19] MEDS ORDERED: NITROGLYCERIN 0.4 MG SL TAB SL PRN (09:30)
[2019-03-19] MEDS ORDERED: LACTULOSE 20Gm/30ML SOLN PO PRN (09:30)
[2019-03-19] MEDS ORDERED: ALBUTEROL SULF 2.5 MG/0.5ML(0.5%) NEB SOLN NEB PRN (09:30)
[2019-03-19] MEDS ORDERED: MORPHINE SULFATE 4 MG/ML SYR/VIAL IV PRN (09:30)
[2019-03-19] MEDS ORDERED: TEMAZEPAM 15 MG CAP PO PRN (09:30)
[2019-03-19] MEDS: CARVEDILOL 3.125 MG TAB PO SCH ×2 (10:33→22:00)
[2019-03-19] MEDS: LEVOFLOXACIN 500MG 100 ML IV SCH (10:33)
[2019-03-19] MEDS: FUROSEMIDE 40 MG/4 ML VIAL IV SCH (10:33)
[2019-03-19] MEDS: APIXABAN 5 MG TAB PO SCH ×2 (10:34→22:00)
[2019-03-19] MEDS: POTASSIUM CHL 20 Meq TABLET PO SCH (10:34)
[2019-03-19] MEDS: amLODIPine BESYLATE 5 MG TAB PO SCH (10:35)
--- NOTE | 2019-03-19 11:50 | NUR ---
Telemetry admit from ER ANAI MONTOYA admitted to Telemetry unit after SBAR received. Patient oriented to KULWINDER BHATT, RN primary RN, unit, room, bed, and unit policies regarding patient care and visiting hours. Patient now on continuous telemetry monitoring, tele box # 10 and telemetry reading on arrival to unit is afib. Patient placed on bedside oxygen, weighed by bedscale and encouraged to call if they need something.pt daughter stated she is very upset over the fact that they were advised by MD Cruz to come to er to get pleurex drain drained and now they are admitted with that still not happening charge nurse made aware. MD Rosario admitting MD paged for radiology orders to drain
[2019-03-19] MEDS: IPRATROPIUM BROM 0.5 MG/2.5ML INH SOL NEB SCH ×3 (12:03→18:31)
[2019-03-19] MEDS: ALBUTEROL SULF 2.5 MG/0.5ML(0.5%) NEB SOLN NEB SCH ×3 (12:04→18:31)
[2019-03-19] MEDS: ACCU-CHEK COMFORT CURVE STRIP VI SCH ×3 (12:12→22:00)
--- NOTE | 2019-03-19 12:12 | NUR ---
charge nurse and plant floor automation manager at bedside with pt and pt daughter, MD Cruz paged for diriect orders for drainage
[2019-03-19 13:00] VITALS: BP 147/87
[2019-03-19 13:12] VITALS: BP 148/76
--- NOTE | 2019-03-19 13:41 | NUR ---
md bettencourt office called back informed that he will not be in till tonight around 8pm to see pt and give orders to consult primary admitting md, md gray repaged daughter at bedside charge nurse updated pt and family at bedside
--- NOTE | 2019-03-19 13:51 | NUR ---
MD LA PAGED AGAIN BY CHARGE NURSE RN
[2019-03-19] MEDS: SODIUM CHLOR 0.9% PF (SALINE LOCK) 10ML VIAL/SYR IV SCH ×2 (13:55→22:00)
--- NOTE | 2019-03-19 13:56 | NUR ---
MD ELLIOT NICOLE
--- NOTE | 2019-03-19 14:02 | NUR ---
ELLIOT RANGEL CALLED BACK STATING HE IS NOT INDIRECT SALES EXEC TODAY.
--- NOTE | 2019-03-19 14:20 | NUR ---
MD LA called back gave order for drainage also informed him of pt current tele readings wants cardiology consult and EKG
--- NOTE | 2019-03-19 14:23 | NUR ---
Radiology called will be up to drain
--- NOTE | 2019-03-19 14:58 | NUR ---
pleurex drained 700ml fluid taken out pt started c/o pain and coughing post procedure vitals 139/72 hr105 97% r 18
--- NOTE | 2019-03-19 15:24 | NUR ---
EKG done on ot tolerated well
[2019-03-19 17:00] VITALS: BP 121/91
--- NOTE | 2019-03-19 18:15 | NUR ---
md robertson called daughter no answer awaiting call back, charge on phone with daughter updated on plan of care, pt to follow up with MD Moreno post discharge
--- NOTE | 2019-03-19 18:30 | NUR ---
PT STATED SHE DIDN'T WANT HER SCHEDULED MIDNIGHT MED NEB TX. PT IS AWARE TO PAGE IF SHE BECOMES SOB OR TX IS NEEDED.
[2019-03-19 18:54] VITALS: BP 121/91
--- NOTE | 2019-03-19 19:30 | NUR ---
PM ASSESSMENT PT AWAKE, ALERT, A/OX4, AFEBRILE. NO SOB OR DISTRESS, NC @2L. FAMILY AT BEDSIDE. POC DISCUSSED, PT STATED UNDERSTANDING. SAFETY PRECAUTIONS IN PLACE. WILL CONTINUE TO MONITOR.
[2019-03-19] MEDS ORDERED: TRAZ50TA2 (19:55)
[2019-03-19] MEDS ORDERED: AMLO10TA13 PO (19:55)
[2019-03-19] MEDS ORDERED: LISI-646 PO (19:55)
[2019-03-19] MEDS ORDERED: METO25TA5 PO (19:55)
--- NOTE | 2019-03-19 19:55 | NUR ---
hospitalist paged pt hr 130's, pt states she takes Lopressor 25mg bid at home. paged hospitalist for orders. awaiting call back.
--- NOTE | 2019-03-19 20:30 | NUR ---
PT MED REC UPDATED.
[2019-03-19] MEDS: METOPROLOL TARTRATE 25 MG TAB PO SCH (22:00)
[2019-03-19 22:31] VITALS: BP 147/90
--- NOTE | 2019-03-20 02:27 | NUR ---
ROUNDS PT SLEEPING CHEST RISING AND FALLING, AROUSABLE BY NAME. NO SOB OR DISTRESS. SAFETY PRECAUTIONS IN PLACE. WILL CONTINUE TO MONITOR.
[2019-03-20] MEDS: ALBUTEROL SULF 2.5 MG/0.5ML(0.5%) NEB SOLN NEB SCH ×3 (06:14→19:33)
[2019-03-20] MEDS: IPRATROPIUM BROM 0.5 MG/2.5ML INH SOL NEB SCH ×3 (06:14→19:33)
[2019-03-20] MEDS: ACCU-CHEK COMFORT CURVE STRIP VI SCH ×4 (06:16→22:00)
[2019-03-20] MEDS: SODIUM CHLOR 0.9% PF (SALINE LOCK) 10ML VIAL/SYR IV SCH ×3 (06:16→22:21)
[2019-03-20 06:29] VITALS: BP 126/73
--- NOTE | 2019-03-20 06:59 | NUR ---
ROUNDS PT SLEEPING CHEST RISING AND FALLING, AROUSABLE BY NAME. PT AFEBRILE. NO SOB OR DISTRESS. SAFETY PRECAUTIONS IN PLACE. WILL CONTINUE TO MONITOR.
--- NOTE | 2019-03-20 07:55 | NUR ---
PATIENT ROUNDS PATIENT IN BED, NO DISTRESS NOTED, BED IN LOWEST POSITION, SIDE RAIL UP X2 CALL LIGHT WITHIN REACH. WILL CONTINUE TO MONITOR AND INITIATE PLAN OF CARE. STUDENT PORTAINER OPERATOR SONIA ASSISTING IN PATIENT CARE.
[2019-03-20 08:00] VITALS: BP 133/79
[2019-03-20 09:00] VITALS: BP 133/79
[2019-03-20 09:01] LABS: Albumin 2.3 g/dL (3.4-5.0); BUN/Creatinine Ratio 14.5; Calcium 8.8 mg/dL (8.5-10.1); Potassium 3.7 mmol/L (3.5-5.1)
[2019-03-20 09:03] LABS: Bilirubin, Total 0.7 mg/dL (0.2-1.0); Total Protein 6.2 g/dL (6.4-8.2)
[2019-03-20] MEDS: POTASSIUM CHL 20 Meq TABLET PO SCH (10:19)
[2019-03-20] MEDS: APIXABAN 5 MG TAB PO SCH ×2 (10:20→22:19)
[2019-03-20] MEDS: CARVEDILOL 3.125 MG TAB PO SCH ×2 (10:21→22:18)
[2019-03-20] MEDS: METOPROLOL TARTRATE 25 MG TAB PO SCH ×2 (10:21→22:19)
[2019-03-20] MEDS: amLODIPine BESYLATE 5 MG TAB PO SCH (10:22)
[2019-03-20] MEDS: LEVOFLOXACIN 500MG 100 ML IV SCH (11:06)
[2019-03-20] MEDS: FUROSEMIDE 40 MG/4 ML VIAL IV SCH (11:06)
--- NOTE | 2019-03-20 11:08 | NUR ---
IV insertion IV access obtained, via clean sterile technique by inserting 22 gauge catheter at LEFT FOREARM after 1 attempt. IV secured properly. No trauma to site. Patient tolerated well. NOTE:
--- NOTE | 2019-03-20 11:11 | NUR ---
IV removal IV DC'd to right hand with clean sterile technique, catheter fully intact. Pressure dressing applied to site. Patient tolerated well. NOTE:
--- NOTE | 2019-03-20 11:48 | NUR ---
RADIOLOGY PAGED SCOTTY IN RADIOLOGY REGARDING SUPPLIES FOR PENDING DRAIN ORDER. WAITING FOR CALL BACK.
[2019-03-20 11:55] LABS: Basophils # (auto) 0.1 uL; Basophils % (auto) 0.8 % (0.0-2.0); Eosinophils # (auto) 0.3 uL; Eosinophils % (auto) 3.5 % (0.0-7.0); Hematocrit 36.2 % (36.0-46.0); Hemoglobin 11.8 g/dL (12.2-16.2); Lymphocytes # (auto) 1.8 uL; Lymphocytes % (auto) 20.4 % (10.0-50.0); Mean Corpuscular Hemoglobin 27.4 pg (28.0-32.0); Mean Corpuscular Hgb Conc. 32.6 g/dL (32.0-36.0); Monocytes # (auto) 0.5 uL; Monocytes % (auto) 5.8 % (0.0-12.0); Neutrophils # (auto) 6.1 uL; Neutrophils % (auto) 69.5 % (37.0-80.0); Nucleated Red Blood Cells % 0.1 %; Platelet Count (auto) 383 10^3/uL (140-450); Red Blood Cells 4.31 10^6/uL (4.0-5.20); White Blood Cell 8.7 10^3/uL (4.4-10.8)
--- NOTE | 2019-03-20 12:00 | NUR ---
PATIENT ROUNDS PATIENT SITTING ON CHAIR. USING 3L NC, CALL LIGHT WITHIN REACH, NO SIGNS OF DISTRESS AT THIS TIME.
[2019-03-20] MEDS ORDERED: POTASSIUM CHL 20 Meq TABLET PO ONE (12:45)
--- NOTE | 2019-03-20 12:52 | NUR ---
RE-PAGED SCOTTY IN RADIOLOGY REGARDING SUPPLIES FOR PENDING DRAIN ORDER.
[2019-03-20 13:00] VITALS: BP 128/79
--- NOTE | 2019-03-20 16:40 | NUR ---
DRAINAGE REFRIGERATION SPECIALIST CHRIS OBTAINED BOTTLES FOR PLEURX DRAINAGE. PLEURX DRAINED 240ML RED FLUID PER PROCEDURE PROTOCOL AND STERILE TECHNIQUE BY [facility] AND ASSISTED BY BEDSIDE WAYLON SUTHERLAND, PATIENT TOLERATED WELL, DR DEE PAGED TO INFORM HIM OF DRAINAGE AND SEE IF HE WANTS FLUID SENT TO PATHOLOGY. WAITING FOR CALL BACK. CXR ORDERED PER MD ORDERS-SEE ORDER HISTORY AND COMMUNICATION ORDER.
--- NOTE | 2019-03-20 16:47 | NUR ---
PATIENT PROVIDED WITH EXTRA DRAINAGE BOTTLE PER MD ORDERS
[2019-03-20 17:00] VITALS: BP 118/81
--- NOTE | 2019-03-20 17:25 | NUR ---
MD DR FELICIANO CALLED BACK AND STATED THAT HE DOES NOT WANT THE FLUID TO BE SENT TO PATHOLOGY AND THAT PATIENT CAN BE DISCHARGED FROM HIS STANDPOINT. HE HAS SPOKEN WITH THE PATIENTS DAUGHTER ND HAS UPDATED HER ON PLAN OF CARE.
--- NOTE | 2019-03-20 17:46 | NUR ---
MD DR Octavio JAMIL IN TO SEE PATIENT, UPDATED ON DR FELICIANO STANDPOINT, DR RITTER STATED HE WANTS TO HAVE THE ONCOLOGY DR TO SEE PATIENT BEFORE SHE GOES HOME, PLAN FOR PATIENT TO GO HOME TOMORROW.
--- NOTE | 2019-03-20 18:12 | NUR ---
ACCUCHECK 151, NO COVERAGE ORDERED.
--- NOTE | 2019-03-20 19:00 | NUR ---
Opening Shift Note Assumed care of patient, awake and alert. No S/S of distress/SOB or pain. Instructed on POC and to call for assist PRN, will continue to monitor for changes Q1hr and PRN.
--- NOTE | 2019-03-20 19:35 | NUR ---
Respiratory note: PT REFUSE MED NEB AT THIS TIME, PT STATES SHE DOESNT WANT HER NEXT SCHEDULED MED NEB AT 0000 EITHER. PT DENIES SOB AT THIS TIME, NO RESP DISTRESS NOTED. PULSE OX 97% ON 2LNC, HR 114, RR 20, BILATERAL BS EXP WHEEZE
[2019-03-20 22:30] VITALS: BP 134/91
[2019-03-21 05:14] VITALS: BP 130/74
[2019-03-21] MEDS: SODIUM CHLOR 0.9% PF (SALINE LOCK) 10ML VIAL/SYR IV SCH ×2 (05:40→12:16)
[2019-03-21 05:43] LABS: Basophils # (auto) 0.1 uL; Basophils % (auto) 0.8 % (0.0-2.0); Eosinophils # (auto) 0.3 uL; Eosinophils % (auto) 4.3 % (0.0-7.0); Hematocrit 32.7 % (36.0-46.0); Hemoglobin 10.7 g/dL (12.2-16.2); Lymphocytes # (auto) 1.7 uL; Lymphocytes % (auto) 23.6 % (10.0-50.0); Mean Corpuscular Hemoglobin 27.5 pg (28.0-32.0); Mean Corpuscular Hgb Conc. 32.7 g/dL (32.0-36.0); Monocytes # (auto) 0.6 uL; Monocytes % (auto) 8.2 % (0.0-12.0); Neutrophils # (auto) 4.5 uL; Neutrophils % (auto) 63.1 % (37.0-80.0); Platelet Count (auto) 290 10^3/uL (140-450); Red Cell Distribution Width 14.4 % (11.8-14.3); White Blood Cell 7.1 10^3/uL (4.4-10.8)
[2019-03-21] MEDS: IPRATROPIUM BROM 0.5 MG/2.5ML INH SOL NEB SCH ×2 (05:47→12:00)
[2019-03-21] MEDS: ALBUTEROL SULF 2.5 MG/0.5ML(0.5%) NEB SOLN NEB SCH ×2 (05:47→12:00)
[2019-03-21] MEDS: ACCU-CHEK COMFORT CURVE STRIP VI SCH ×3 (06:32→16:58)
--- NOTE | 2019-03-21 07:31 | NUR ---
Patient rounds Patient resting in bed, no distress noted, bed in lowest position, side rails up x2, call light within reach. Will continue to monitor and initiate plan of care.
[2019-03-21 07:51] VITALS: BP 128/83
[2019-03-21 09:16] VITALS: BP 128/83
[2019-03-21] MEDS: LEVOFLOXACIN 500MG 100 ML IV SCH (09:58)
[2019-03-21] MEDS: FUROSEMIDE 40 MG/4 ML VIAL IV SCH (09:58)
[2019-03-21] MEDS: APIXABAN 5 MG TAB PO SCH (09:59)
[2019-03-21] MEDS: METOPROLOL TARTRATE 25 MG TAB PO SCH (09:59)
[2019-03-21] MEDS: POTASSIUM CHL 20 Meq TABLET PO SCH (09:59)
[2019-03-21] MEDS: amLODIPine BESYLATE 5 MG TAB PO SCH (09:59)
[2019-03-21] MEDS: CARVEDILOL 3.125 MG TAB PO SCH (10:00)
--- NOTE | 2019-03-21 11:51 | NUR ---
PAGED DR GRACIA PER DR Octavio JAMIL REQUEST-PENDING CONSULT AND CLEARANCE FOR DISCHARGE
--- NOTE | 2019-03-21 12:00 | NUR ---
Respiratory note: PT REFUSED HER MED NEB TX. NO SOB NOTED. PT APPEARS TO BE BREATHING COMFORTABLY ON 2L NC.
[2019-03-21 13:08] VITALS: BP 117/78
--- NOTE | 2019-03-21 13:16 | NUR ---
DR Octavio JAMIL MD IN TO SEE PATIENT, DR JAMIL SPOKE WITH DR GRACIA AND STATED HE SHOULD BE IN TO SEE PATIENT AROUND 15:00-15:00. PATIENT HAS BEEN MADE AWARE, ATTEMPTED TO CALL PATIENTS DAUGHTER RUPINDER BUT NO ANSWER. DR JAMIL TO PLACE DISCHARGE ORDER IF CLEARED BY DR GRACIA.
--- NOTE | 2019-03-21 15:17 | NUR ---
HOME HEALTH PER DR JAMIL I WOULD BE ABLE TO CONTACT [place] WITH HOME HEALTH REGARDING THE ARRANGEMENT FOR PATIENT. I CALLED AND SPOKE WITH [place] AND HE STATED IT IS GOING TO BE [facility] TO ARRANGE, I ASKED HIM FOR A PHONE NUMBER BUT HE STATED HE DOES NOT HAVE A PHONE NUMBER FOR THEM. INVESTOR RELATIONS COORDINATOR SOCIAL SERVICE PAGED REGARDING CONSULT.
--- NOTE | 2019-03-21 16:08 | NUR ---
UPDATE SPOKE WITH AWILDA PURCHASING INTERNSHIP AND INFORMED HER OF THE PENDING CONSULT, SHE STATED SHE IS GOING TO CALL [facility] AND THEN WILL CALL ME BACK TO UPDATE ME ON STATUS. PATIENTS DAUGHTER HAS BEEN MADE AWARE AND HAS BEEN UPDATED ON POC AFTER CORRECT PASSWORD WAS PROVIDED.
--- NOTE | 2019-03-21 16:18 | NUR ---
UPDATE SPOKE WITH AWILDA IN CASE MANAGEMENT, HOME HEALTH IS TO BE ARRANGED WITH [facility] [phone], PHONE NUMBER HAS BEEN GIVEN TO PATIENT AND PATIENTS DAUGHTER HAS BEEN CALLED TO INFORM HER, MESSAGE WAS LEFT TO HAVE DAUGHTER CALL ME BACK. PATIENT UPDATED.
--- NOTE | 2019-03-21 16:19 | NUR ---
wind turbine blade repair technician-I received a page from nurse Bowden letting me know that this patient is discharged and needs home health. I called [facility] [facility] [phone], he said [facility] will follow the patient-he is aware that they need to follow her for her pleurex catheter-they will see patient with in 24-48 hours. I called [facility] [phone] and left message. I spoke with nurse Bowden and gave her phone number to [facility] to give to patient.
--- NOTE | 2019-03-21 16:48 | NUR ---
IV removal IV DC'd with clean sterile technique, catheter fully intact. Pressure dressing applied to site. Patient tolerated well. NOTE: TELE MONITOR CLEANED AND RETURNED TO MATERIAL WORKER.
[2019-03-21 16:55] VITALS: BP 121/58
== END 2019-03-21 18:00 | disposition home health service (06) | DRG 180 ==
LOC: ER 18:15 → TELE 18:16 → TELE-EAST 03-19 11:38
PROVIDERS: ADMIT Internal Medicine; ATTEND Internal Medicine
PROC: 0W9930Z Drainage of Right Pleural Cavity with Drainage Device, Percutaneous Approach (ICD-10-PCS; principal; 2019-03-20)
DX: C34.91 Malignant neoplasm of unspecified part of right bronchus or lung (principal); J18.9 Pneumonia, unspecified organism; J91.0 Malignant pleural effusion; I47.1 Supraventricular tachycardia; C50.111 Malignant neoplasm of central portion of right female breast; E87.6 Hypokalemia; I10 Essential (primary) hypertension; N28.89 Other specified disorders of kidney and ureter; E27.9 Disorder of adrenal gland, unspecified; F03.90 Unspecified dementia, unspecified severity, without behavioral disturbance, psychotic disturbance, mood disturbance, and anxiety; I48.91 Unspecified atrial fibrillation; Z79.01 Long term (current) use of anticoagulants; Z86.711 Personal history of pulmonary embolism; Z85.118 Personal history of other malignant neoplasm of bronchus and lung; Z17.0 Estrogen receptor positive status [ER+]; Z85.3 Personal history of malignant neoplasm of breast; Z91.012 Allergy to eggs; Z91.018 Allergy to other foods; Z79.899 Other long term (current) drug therapy
CPT/HCPCS: 36415; 71045; 71046; 80048; 80053; 82962; 83036; 83735; 83880; 85025; 85610; 85730; 94640; G0378; J1956